=== PATIENT | male | born 1935 | race Caucasian/White ===

== ENCOUNTER 2020-01-06 14:24 | Inpatient (IN) | payer MEDICARE ==
[2020-01-06] MEDS ORDERED: ACETAMINOPHEN TAB 325 MG TAB PO STA (15:11)
[2020-01-06] MEDS ORDERED: SODIUM CHLORIDE 0.9% 1,000 ML IV STA (15:12)
[2020-01-06 15:39] LABS: Basophils % (A) 0 %; Eosinophils # (A) 0.2 k/uL (0-0.7); Eosinophils % (A) 2 %; HCT 37.9 % (39.0-53.0); HGB 12.9 gm/dL (13.0-17.5); Lymphocytes # (A) 0.3 k/uL (1.0-4.8); Lymphocytes % (A) 4 %; MCHC 34.2 g/dL (31.0-37.0); MCV 93.6 fL (80.0-100.0); Mean Platelet Volume 7.8; Monocytes # (A) 0.5 k/uL (0-1.0); Monocytes % (A) 6 %; Neutrophils # (A) 5.8 k/uL (1.3-7.7); Neutrophils % (A) 83 %; Platelet Count 102 k/uL (150-450); RBC 4.05 m/uL (4.30-5.90); RDW 14.1 % (11.5-15.5)
[2020-01-06 15:45] LABS: ALT 17 U/L (4-49); AST 25 U/L (17-59); African American GFR (CKD) >90 (>60 ml/min/1.73 sqM); Albumin 3.2 g/dL (3.5-5.0); Alkaline Phosphatase 115 U/L (38-126); Anion Gap 8 mmol/L; Appearance,Urine Turbid (Clear); Bacteria,Urine Many /hpf; Bilirubin,Urine Negative (Negative); Blood Urea Nitrogen 27 mg/dL (9-20); Blood,Urine Moderate (Negative); Calcium 9.1 mg/dL (8.4-10.2); Carbon Dioxide 23 mmol/L (22-30); Chloride 106 mmol/L (98-107); Color,Urine Yellow; Glucose 126 mg/dL (74-99); Glucose,Urine (UA) Negative (Negative); Ketones,Urine Negative (Negative); LDH 441 U/L (313-618); Leukocyte Esterase,Urine Large (Negative); Magnesium 2.1 mg/dL (1.6-2.3); Mucus,Urine Many /hpf; Nitrite,Urine Positive (Negative); Non-African American GFR(CKD) 80 (>60 ml/min/1.73 sqM); PH, Urine 5.5 (5.0-8.0); Potassium 4.3 mmol/L (3.5-5.1); Protein,Urine 1+ (Negative); RBC,Urine 146 /hpf (0-5); Sodium 137 mmol/L (137-145); Specific Gravity,Urine 1.024 (1.001-1.035); Squamous Epithelial Cell,Urine 3 /hpf (0-4); Total Bilirubin 0.8 mg/dL (0.2-1.3); Total Protein 6.4 g/dL (6.3-8.2); Urobilinogen,Urine <2.0 mg/dL (<2.0); WBC,Urine >182 /hpf (0-5)
[2020-01-06 15:51] LABS: Partial Thromboplastin Time 29.6 sec (22.0-30.0); Prothrombin Time 10.3 sec (9.0-12.0)
--- NOTE | 2020-01-06 15:57 | XR ---
EXAMINATION TYPE: XR chest 1V portable DATE OF EXAM: 01/06/2020 Comparison: None Clinical History: 85-year-old male fever and weakness, Suspected COVID-19 pneumonia Findings: Exam rotated towards the right. Heart upper limits of normal in size. Mild elongation thoracic aorta. Mild patchy interstitial density in the right lower lung. No pleural effusion. Impression: Rotated exam. Mild patchy interstitial density in the right lower lung could represent developing pne umonia. Follow-up can be performed.
--- NOTE | 2020-01-06 16:17 | ED ---
Weakness HPI - General Chief complaint: Weakness Stated complaint: Fever/weakness Time Seen by Provider: 01/06/20 14:53 Source: family Mode of arrival: wheelchair Limitations: altered mental status, physical limitation - History of Present Illness Initial comments: Patient is a 85-year-old male, with history of dementia, presenting to the emergency with complaints of weakness and a fever 3 days. Patient's son is here with him now and is also his electrical engineer mep. Son states that patient is been having low-grade fevers for the last 3 days as well as a mild cough and increase in weakness, difficulty walking on his own. They have been giving patient Tyl enol for his fever. He's been having regular bowel movements. Has not been complaining of abdominal pain or chest pain or shortness of breath. Patient has not left his house in over 6 weeks. There are no other complaints at this time. Upon arrival to the ER, patient arrived febrile to 103 10, pulse is 101, less rate 18, BP is 104/65, oxygen 95% on room air. - Related Data Allergies Allergy/AdvReac Type Severity Reaction Status Date / Time No Known Allergies Allergy Verified 01/06/20 14:35 Review of Systems ROS Statement: Those systems with pertinent positive or pertinent negative responses have been documented in the HPI. ROS Other: All systems not noted in ROS Statement are negative. Past Medical History Past Medical History: Dementia, GERD/Reflux Additional Past Medical History / Comment(s): bph, kidney stone History of Any Multi-Drug Resistant Organisms: None Reported Past Surgical History: Hernia Repair Additional Past Surgical History / Comment(s): kidney stone removal Smoking Status: Former smoker Past Alcohol Use History: None Reported Past Drug Use History: None Reported General Exam - General Exam Comments Initial Comments: GENERAL: Well-appearing, looks fatigued, in no acute distress. HEAD: Atraumatic, normocephalic. EYES: Pupils equal round and reactive to light, extraocular movements intact, sclera anicteric, conjunctiva are normal. ENT: TMs normal, nares patent, oropharynx clear without exudates. Dry mucous membranes. NECK: Normal range of motion, supple without lymphadenopathy or JVD. LUNGS: Breath sounds clear to auscultation bilaterally and equal. No wheezes rales or rhonchi. HEART: Regular rate and rhythm without murmurs, rubs or gallops. ABDOMEN: Soft, nontender, normoactive bowel sounds. No guarding, no rebound. No masses appreciated. : Deferred EXTREMITIES: Normal range of motion, no pitting or edema. No clubbing or cyanosis. NEUROLOGICAL: Cranial nerves II through XII grossly intact. PSYCH: History of dementia. SKIN: Warm, Dry, normal turgor, no rashes or lesions noted. Limitations: altered mental status, physical limitation Course Vital Signs 01/06/20 01/06/20 01/06/20 14:32 15:03 16:35 Temperature 103.0 F H 99.2 F Pulse Rate 101 H 83 Respiratory 20 18 18 Rate Blood Pressure 104/65 122/69 O2 Sat by Pulse 95 98 Oximetry EKG Findings - EKG Comments: EKG Findings:: Ventricular rate 78, DE interval 152, QTC 410. Normal sinus rhythm. Normal ECG. No signs of acute ischemia. Medical Decision Making - Medical Decision Making Patient is an 85-year-old male, history dementia, presenting with a fever, increasing weakness for 3 days. Patient's son is providing history. Patient arrived febrile 103, slightly tachycardia at 101. Exam revealed no significant abnormalities. Lab work shows normal white count, hemoglobin normal. Slight BUN elevation at 27, troponin is normal. CRP is elevated at 391. Rapid Covid is negative. UA does reveal a significant UTI, positive nitrate. Chest x-ray shows mild patchy density in the right lower lung that could really represent a developing pneumonia. Patient was given fluids, started on Rocephin and azithromycin. Patient will be admitted for continued IV antibiotics and fluids. Discussed case with Dr. Chisholm who will be accepting. Case also discussed with Dr. Butler. - Lab Data Result diagrams: 01/06/20 15:23 01/06/20 15:23 Lab Results 01/06/20 01/06/20 01/06/20 Range/Units 15:23 15:23 15:23 WBC 7.0 (3.8-10.6) k/uL RBC 4.05 L (4.30-5.90) m/uL Hgb 12.9 L (13.0-17.5) gm/dL Hct 37.9 L (39.0-53.0) % MCV 93.6 (80.0-100.0) fL MCH 32.0 (25.0-35.0) pg MCHC 34.2 (31.0-37.0) g/dL RDW 14.1 (11.5-15.5) % Plt Count 102 L (150-450) k/uL Neutrophils % 83 % Lymphocytes % 4 % Monocytes % 6 % Eosinophils % 2 % Basophils % 0 % Neutrophils # 5.8 (1.3-7.7) k/uL Lymphocytes # 0.3 L (1.0-4.8) k/uL Monocytes # 0.5 (0-1.0) k/uL Eosinophils # 0.2 (0-0.7) k/uL Basophils # 0.0 (0-0.2) k/uL PT 10.3 (9.0-12.0) sec INR 1.0 (<1.2) APTT 29.6 (22.0-30.0) sec D-Dimer 1.31 H (<0.60) mg/L FEU Sodium (137-145) mmol/L Potassium (3.5-5.1) mmol/L Chloride (98-107) mmol/L Carbon Dioxide (22-30) mmol/L Anion Gap mmol/L BUN (9-20) mg/dL Creatinine (0.66-1.25) mg/dL Est GFR (CKD-EPI)AfAm (>60 ml/min/1.73 sqM) Est GFR (CKD-EPI)NonAf (>60 ml/min/1.73 sqM) Glucose (74-99) mg/dL Plasma Lactic Acid Vu (0.7-2.0) mmol/L Calcium (8.4-10.2) mg/dL Magnesium (1.6-2.3) mg/dL Total Bilirubin (0.2-1.3) mg/dL AST (17-59) U/L ALT (4-49) U/L Alkaline Phosphatase (38-126) U/L Lactate Dehydrogenase (313-618) U/L Troponin I (0.000-0.034) ng/mL C-Reactive Protein (<10.0) mg/L NT-Pro-B Natriuret Pep pg/mL Total Protein (6.3-8.2) g/dL Albumin (3.5-5.0) g/dL Urine Color Yellow Urine Appearance Turbid (Clear) Urine pH 5.5 (5.0-8.0) Ur Specific [place] 1.024 (1.001-1.035) Urine Protein 1+ H (Negative) Urine Glucose (UA) Negative (Negative) Urine Ketones Negative (Negative) Urine Blood Moderate H (Negative) Urine Nitrite Positive (Negative) Urine Bilirubin Negative (Negative) Urine Urobilinogen <2.0 (<2.0) mg/dL Ur Leukocyte Esterase Large H (Negative) Urine RBC 146 H (0-5) /hpf Urine WBC >182 H (0-5) /hpf Urine WBC Clumps Many H (None) /hpf Ur Squamous Epith Cells 3 (0-4) /hpf Urine Bacteria Many H (None) /hpf Urine Mucus Many H (None) /hpf Coronavirus (PCR) (Not Detectd) 01/06/20 01/06/20 01/06/20 Range/Units 15:23 15:23 15:23 WBC (3.8-10.6) k/uL RBC (4.30-5.90) m/uL Hgb (13.0-17.5) gm/dL Hct (39.0-53.0) % MCV (80.0-100.0) fL MCH (25.0-35.0) pg MCHC (31.0-37.0) g/dL RDW (11.5-15.5) % Plt Count (150-450) k/uL Neutrophils % % Lymphocytes % % Monocytes % % Eosinophils % % Basophils % % Neutrophils # (1.3-7.7) k/uL Lymphocytes # (1.0-4.8) k/uL Monocytes # (0-1.0) k/uL Eosinophils # (0-0.7) k/uL Basophils # (0-0.2) k/uL PT (9.0-12.0) sec INR (<1.2) APTT (22.0-30.0) sec D-Dimer (<0.60) mg/L FEU Sodium 137 (137-145) mmol/L Potassium 4.3 (3.5-5.1) mmol/L Chloride 106 (98-107) mmol/L Carbon Dioxide 23 (22-30) mmol/L Anion Gap 8 mmol/L BUN 27 H (9-20) mg/dL Creatinine 0.83 (0.66-1.25) mg/dL Est GFR (CKD-EPI)AfAm >90 (>60 ml/min/1.73 sqM) Est GFR (CKD-EPI)NonAf 80 (>60 ml/min/1.73 sqM) Glucose 126 H (74-99) mg/dL Plasma Lactic Acid Vu 1.6 (0.7-2.0) mmol/L Calcium 9.1 (8.4-10.2) mg/dL Magnesium 2.1 (1.6-2.3) mg/dL Total Bilirubin 0.8 (0.2-1.3) mg/dL AST 25 (17-59) U/L ALT 17 (4-49) U/L Alkaline Phosphatase 115 (38-126) U/L Lactate Dehydrogenase 441 (313-618) U/L Troponin I <0.012 (0.000-0.034) ng/mL C-Reactive Protein 391.5 H (<10.0) mg/L NT-Pro-B Natriuret Pep pg/mL Total Protein 6.4 (6.3-8.2) g/dL Albumin 3.2 L (3.5-5.0) g/dL Urine Color Urine Appearance (Clear) Urine pH (5.0-8.0) Ur Specific [place] (1.001-1.035) Urine Protein (Negative) Urine Glucose (UA) (Negative) Urine Ketones (Negative) Urine Blood (Negative) Urine Nitrite (Negative) Urine Bilirubin (Negative) Urine Urobilinogen (<2.0) mg/dL Ur Leukocyte Esterase (Negative) Urine RBC (0-5) /hpf Urine WBC (0-5) /hpf Urine WBC Clumps (None) /hpf Ur Squamous Epith Cells (0-4) /hpf Urine Bacteria (None) /hpf Urine Mucus (None) /hpf Coronavirus (PCR) (Not Detectd) 01/06/20 01/06/20 Range/Units 15:23 15:23 WBC (3.8-10.6) k/uL RBC (4.30-5.90) m/uL Hgb (13.0-17.5) gm/dL Hct (39.0-53.0) % MCV (80.0-100.0) fL MCH (25.0-35.0) pg MCHC (31.0-37.0) g/dL RDW (11.5-15.5) % Plt Count (150-450) k/uL Neutrophils % % Lymphocytes % % Monocytes % % Eosinophils % % Basophils % % Neutrophils # (1.3-7.7) k/uL Lymphocytes # (1.0-4.8) k/uL Monocytes # (0-1.0) k/uL Eosinophils # (0-0.7) k/uL Basophils # (0-0.2) k/uL PT (9.0-12.0) sec INR (<1.2) APTT (22.0-30.0) sec D-Dimer (<0.60) mg/L FEU Sodium (137-145) mmol/L Potassium (3.5-5.1) mmol/L Chloride (98-107) mmol/L Carbon Dioxide (22-30) mmol/L Anion Gap mmol/L BUN (9-20) mg/dL Creatinine (0.66-1.25) mg/dL Est GFR (CKD-EPI)AfAm (>60 ml/min/1.73 sqM) Est GFR (CKD-EPI)NonAf (>60 ml/min/1.73 sqM) Glucose (74-99) mg/dL Plasma Lactic Acid Vu (0.7-2.0) mmol/L Calcium (8.4-10.2) mg/dL Magnesium (1.6-2.3) mg/dL Total Bilirubin (0.2-1.3) mg/dL AST (17-59) U/L ALT (4-49) U/L Alkaline Phosphatase (38-126) U/L Lactate Dehydrogenase (313-618) U/L Troponin I (0.000-0.034) ng/mL C-Reactive Protein (<10.0) mg/L NT-Pro-B Natriuret Pep 1060 pg/mL Total Protein (6.3-8.2) g/dL Albumin (3.5-5.0) g/dL Urine Color Urine Appearance (Clear) Urine pH (5.0-8.0) Ur Specific [place] (1.001-1.035) Urine Protein (Negative) Urine Glucose (UA) (Negative) Urine Ketones (Negative) Urine Blood (Negative) Urine Nitrite (Negative) Urine Bilirubin (Negative) Urine Urobilinogen (<2.0) mg/dL Ur Leukocyte Esterase (Negative) Urine RBC (0-5) /hpf Urine WBC (0-5) /hpf Urine WBC Clumps (None) /hpf Ur Squamous Epith Cells (0-4) /hpf Urine Bacteria (None) /hpf Urine Mucus (None) /hpf Coronavirus (PCR) Not Detected (Not Detectd) Disposition Clinical Impression: Sepsis, UTI (urinary tract infection), Pneumonia Disposition: ADMITTED IP TO THIS HOSP Condition: Good Is patient prescribed a controlled substance at d/c from ED?: No Decision Date: 01/06/20 Decision Time: 16:40
[2020-01-06 16:18] LABS: D-Dimer 1.31 mg/L FEU (<0.60)
[2020-01-06] MEDS ORDERED: AZITHROMYCIN 500 MG in SODIUM CHLORIDE 0.9% 250 ML IVPB STA (16:34)
[2020-01-06] MEDS ORDERED: NALOXONE 0.4 MG/ML 1 ML VIAL IV PRN (16:37)
[2020-01-06 16:43] LABS: C Reactive Protein 391.5 mg/L (<10.0)
[2020-01-06] MEDS ORDERED: HYDROcodone/APAP 5-325MG 1 EACH TAB PO PRN (17:22)
[2020-01-06] MEDS ORDERED: ALPRAZolam 0.25 MG TAB PO PRN (17:22)
[2020-01-06] MEDS ORDERED: LORazepam 2 MG/ML INJ IV PRN (17:24)
--- NOTE | 2020-01-06 19:04 | HP ---
HISTORY AND PHYSICAL DATE OF SERVICE: 01/06/2020 CHIEF COMPLAINT: Weakness as well as fever. HISTORY OF PRESENT ILLNESS: This 85-year-old gentleman with a past medical history of significant dementia, history of GERD, history of BPH, nephrolithiasis, not being followed by a primary physician in the outpatient setting, was living elsewhere until recently with his . Because of difficulties and weakness, the patient's son got both of them for the last few months, but the son noted that the patient was getting progressively weak and confused and also was having low-grade fever. The patient was taken to [facility] and was admitted for further evaluation and treatment. The patient has evidence of UTI. The patient is unable to give a coherent history. Patient is oriented x1 only at times. Most of the history taken from my discussion with staff and discussion with the ER physician and discussion with the patient's son at the bedside at this time. The son also indicated some difficulties with maintaining activities of daily living. A social work/case management consult was also requested. There is no history of trauma. PAST MEDICAL HISTORY: History of GERD, dementia, history of BPH, kidney stones, history of hernia repair, kidney stone removal. HOME MEDICATIONS: The list is not available. ALLERGIES: NONE. FAMILY HISTORY: No history of heart disease or strokes in the family. SOCIAL HISTORY: Remote history of smoking. No current smoking or alcohol intake. REVIEW OF SYSTEMS: Could not be taken because of the patient's change in mental status and advanced dementia. PHYSICAL EXAMINATION: The patient is oriented x1 at times. Pulse is 101, blood pressure 104/64, respiration 20, temperature 103, pulse ox 94% on room air. HEENT: Conjunctivae normal. Oral mucosa moist. NECK: No jugular venous distention. No carotid bruit. No lymph node enlargement. CARDIOVASCULAR SYSTEM: S1, S2 muffled. No S3. No S4. RESPIRATORY SYSTEM: Breath sounds diminished at the bases. A few scattered rhonchi. No crackles. ABDOMEN: Soft, non-tender. No mass palpable. LEGS: No edema. No swelling. NERVOUS SYSTEM: Diffusely weak. LAB: Lab investigations at this time show WBC 7, hemoglobin 12.9. D-dimer is 1.31. Lactic acid 1.6. C-reactive protein 391.5. UA noted. UA with WBC clumps grown; otherwise negative. ASSESSMENT: 1. Possible urinary tract infection with sepsis. 2. Change in mental status, acute on chronic metabolic encephalopathy, possibly secondary to sepsis. 3. Severe dementia. 4. Anemia. 5. Macrocytosis, possibly nutritional anemia. 6. Elevated D-dimer. 7. Rule out right lower lobe pneumonia. 8. History of gastroesophageal reflux disease. 9. History of benign prostatic hypertrophy. 10.History of kidney stones. 11.History of hernia repair. 12.Remote history of nicotine dependence. 13.FULL CODE. 14.Gait dysfunction. RECOMMENDATIONS AND DISCUSSION: In this 85-year-old gentleman who presented with multiple complex medical issues, we will monitor the patient closely, continue the current medications, continue symptomatic treatment. I recommend broad-spectrum IV antibiotics, PT/OT evaluation. DVT prophylaxis. Continue the rest of medication. Obtain cultures. We will follow the patient closely. I would also recommend that casework manager/social media intern evaluate the home situation as well. The overall prognosis is guarded because of multiple complex medical issues. Patient also had features of dementia and possibly some night terror episodes, per his son. Will provide symptomatic treatment. The prognosis is extremely guarded, which I discussed at length with the son, who understands and agrees. Further recommendations to follow. MMODL / IJN: [id number] / MTDWinnie
[2020-01-06] MEDS: SODIUM CHLORIDE 0.9% 1,000 ML IV SCH (21:08)
[2020-01-06] MEDS: HEPARIN SODIUM,PORCINE 5,000 UNIT/ML 1 ML VIAL SQ SCH ×2 (21:56→22:01)
[2020-01-06] MEDS: PANTOPRAZOLE 40 MG TABLET PO SCH (21:56)
[2020-01-06] MEDS: risperiDONE 0.25 MG TAB PO SCH (21:56)
[2020-01-07] MEDS: ACETAMINOPHEN TAB 325 MG TAB PO PRN ×2 (00:36→14:52)
[2020-01-07 02:01] LABS: Ferritin 270.7 ng/mL (22.0-322.0)
[2020-01-07] MEDS ORDERED: IBUPROFEN 400 MG TAB PO STA (02:01)
[2020-01-07] MEDS: HEPARIN SODIUM,PORCINE 5,000 UNIT/ML 1 ML VIAL SQ SCH (06:58)
[2020-01-07 07:18] LABS: HCT 32.4 % (39.0-53.0); MCH 32.2 pg (25.0-35.0); MCV 94.6 fL (80.0-100.0); Mean Platelet Volume 7.9; RBC 3.42 m/uL (4.30-5.90); WBC 5.5 k/uL (3.8-10.6)
[2020-01-07 07:39] LABS: African American GFR (CKD) >90 (>60 ml/min/1.73 sqM); Anion Gap 4 mmol/L; Blood Urea Nitrogen 23 mg/dL (9-20); Carbon Dioxide 26 mmol/L (22-30); Chloride 109 mmol/L (98-107); Glucose 94 mg/dL (74-99); Non-African American GFR(CKD) 79 (>60 ml/min/1.73 sqM); Potassium 3.8 mmol/L (3.5-5.1); Sodium 139 mmol/L (137-145)
[2020-01-07] MEDS: SODIUM CHLORIDE 0.9% 1,000 ML IV SCH ×2 (08:59→21:40)
[2020-01-07] MEDS: PANTOPRAZOLE 40 MG TABLET PO SCH (08:59)
[2020-01-07 09:07] LABS: Band Neutrophils % 1 %; Eosinophils # (M) 0.22 k/uL (0-0.7); Lymphocytes # (M) 0.61 k/uL (1.0-4.8); Monocytes # (M) 0.94 k/uL (0-1.0); Neutrophils % (M) 67 %; Nucleated Red Blood Cells 0 /100 WBC (0-0); Total Cells Counted 100
[2020-01-07 09:08] LABS: Platelet Count 93 k/uL (150-450)
[2020-01-07] MEDS: FOLIC ACID 1 MG TAB PO SCH (12:41)
[2020-01-07] MEDS: MULTIVITAMINS, THERA 1 EACH TAB PO SCH (12:41)
[2020-01-07] MEDS: THIAMINE 100 MG TAB PO SCH (12:41)
--- NOTE | 2020-01-07 14:42 | XR ---
EXAMINATION TYPE: XR chest 1V portable DATE OF EXAM: 01/07/2020 COMPARISON: 01/06/2020 INDICATION: Right-sided pneumonia, cough TECHNIQUE: Single frontal view of the chest is obtained. FINDINGS: The heart size is normal. The pulmonary vasculature is normal. Very subtle mild increased lung markings are on the right compared to the left. This may have slight improvement over the interval. IMPRESSION: 1. Improving minimal right lower lobe nonspecific infiltrate.
--- NOTE | 2020-01-07 15:01 | PN ---
PROGRESS NOTE DATE OF SERVICE: 01/07/2020 This is an 85-year-old gentleman admitted with possible UTI with sepsis also confused. The patient is on IV antibiotics. Patient also being hydrated at this time. Patient also has some weakness as well. Patient also has severe dementia. The final cultures are pending at this time. Hemoglobin is 11, platelets are 93. C-reactive protein is 391.5. The COVID is negative. PAST MEDICAL HISTORY: Reviewed. REVIEW OF SYSTEMS: Could not be taken. The patient is confused and disoriented. CURRENT MEDICATIONS: Reviewed and include: 1. Tylenol p.r.n. 2. [place] 5 mg q.6 p.r.n. 3. Xanax 0.5 t.i.d. 4. Rocephin 1 g daily. 5. Folic acid 1 mg p.o. daily. 6. Heparin subcu b.i.d. 7. Ativan 0.5 mg p.r.n. 8. Multivitamins 1 p.o. daily. 9. Narcan. 10.Protonix 40 mg. 11.Risperdal 0.125 mg q.h.s. 12.Vitamin B1 one hundred mg p.o. daily. PHYSICAL EXAM: Patient is alert and oriented x3, pulse 67, blood pressure 129/78, respiration 18, temp 97.8, pulse ox 97% on room air. HEENT: Normal. NECK: Normal. CARDIOVASCULAR: S1, S2, muffled. RESPIRATORY: Breath sounds diminished a the bases, a few scattered rhonchi, no crackles. ABDOMEN: Soft, nontender. LEGS: No edema. NERVOUS SYSTEM: Diffusely weak. LABS: WBC is 5, hemoglobin is 11, platelets are 93. Sodium 139, potassium 3.8. ASSESSMENT: 1. Acute urinary tract infection with sepsis present on admission, not related to Boland catheter. 2. Change in mental status, acute on chronic metabolic encephalopathy, possibly secondary to sepsis. 3. Severe dementia. 4. Severe gait dysfunction. 5. Anemia. 6. Macrocytosis, possibly nutritional anemia. 7. Elevated D-dimer. 8. Rule out right lower pneumonia. 9. History of gastroesophageal reflux disease. 10.History of BPH. 11.History of kidney stones. 12.History of hernia repair. 13.Remote history of nicotine dependence. 14.FULL CODE. RECOMMENDATION: Recommend to continue current management and symptomatic treatment. Will continue with IV antibiotics and I would also recommend a chest x-ray to evaluate for possible pneumonia. Otherwise repeat labs. PT, OT evaluation, possible ECF rehab. I had a detailed discussion with the son at the bedside yesterday. We will update staff regarding that and guarded prognosis. Further recommendations to follow. MACL / TOIN: [id number] /
[2020-01-07] MEDS ORDERED: IBUPROFEN 600 MG TAB PO STA (16:33)
[2020-01-07] MEDS: AZITHROMYCIN 500 MG TAB PO SCH (16:57)
[2020-01-07] MEDS: risperiDONE 0.25 MG TAB PO SCH (21:40)
[2020-01-08] MEDS: ALBUTEROL NEBULIZED 2.5 MG/3 ML INHALATION PRN ×2 (07:38→11:01)
[2020-01-08] MEDS: ACETAMINOPHEN TAB 325 MG TAB PO PRN (08:03)
[2020-01-08] MEDS: PANTOPRAZOLE 40 MG TABLET PO SCH (08:03)
[2020-01-08] MEDS: SODIUM CHLORIDE 0.9% 1,000 ML IV SCH (08:15)
[2020-01-08] MEDS: MULTIVITAMINS, THERA 1 EACH TAB PO SCH (13:13)
[2020-01-08] MEDS: FOLIC ACID 1 MG TAB PO SCH (13:13)
[2020-01-08] MEDS: THIAMINE 100 MG TAB PO SCH (13:14)
--- NOTE | 2020-01-08 14:09 | XR ---
EXAMINATION TYPE: XR chest 1V portable DATE OF EXAM: 01/08/2020 Comparison: 01/07/2020 Clinical History: 85 year old male wheezing, cough Findings: Heart upper limits of normal in size. Aorta and pulmonary vasculature within normal limits. Mild inte rstitial prominence slightly increased. No residual consolidation or pleural effusion. Impression: Mild interstitial prominence could reflect bronchitis or asthma. No residual infiltrate seen.
[2020-01-08] MEDS ORDERED: IOPAMIDOL CONTRAST (ORAL USE) VIAL PO PRN (15:51)
[2020-01-08] MEDS: AZITHROMYCIN 500 MG TAB PO SCH (17:25)
[2020-01-08] MEDS: ENOXAPARIN 40 MG/0.4 ML SYRINGE SQ SCH (17:25)
--- NOTE | 2020-01-08 17:33 | PN ---
PROGRESS NOTE DATE OF SERVICE: 12/19/2019 This 85-year-old gentleman was admitted with significant fever, thought to have UTI, initially, but the patient running significant fever. The cultures are showing only gram-negative bacilli. The patient is being closely monitored. Dr. Haynes has been consulted and considering the possibility of COVID-19 infection even though the patient was tested for daigle virus was negative by habit testing in the emergency room. The patient will be closely monitored. Patient continues to be confused and basically not very communicative at this time. PAST MEDICAL HISTORY: Could not be taken. CURRENT MEDICATIONS: Reviews and include: 1. Tylenol p.r.n. 2. [place] 5 mg q.6 p.r.n. 3. Xanax 0.5 t.i.d. 4. Zithromax 500 mg daily. 5. Rocephin 1 g daily. 6. Folic acid 1 mg daily. 7. Ativan 0.5 mg. 8. Multivitamins. 9. Narcan. 10.Protonix. 11.Risperdal. 12.Vitamin B1. 13.Doses reviewed. PHYSICAL EXAM: Patient is alert, oriented x3. Pulse is 78, blood pressure 117/60, respiration 18, temperature 97.9, pulse ox 96% on 2 L. HEENT: Conjunctivae normal. NECK: No jugular venous distension. CARDIOVASCULAR SYSTEM: S1, S2, muffled. RESPIRATION: Breath sounds diminished at the bases, scattered rhonchi, no crackles. ABDOMEN: Soft, nontender. LEGS: No edema, no swelling. NERVOUS SYSTEM: Diffusely weak. LABS: At this time shows WBC 5.8, hemoglobin 7. Other labs are noted. ASSESSMENT: 1. Acute urinary tract infection with sepsis present on admission, not related to Boland catheter. 2. Continued fever, rule out COVID-19. 3. Change in mental status, metabolic encephalopathy, acute on chronic. 4. Severe dementia. 5. Severe gait dysfunction. 6. Anemia. 7. Macrocytosis, possibly nutritional anemia. 8. Elevated D-dimer. 9. Rule out right lower lobe pneumonia. 10.History of gastroesophageal reflux disease. 11.History of BPH. 12.History of kidney stones. 13.History of hernia repair. 14.Remote history of nicotine dependence. 15.FULL CODE. RECOMMENDATION: Recommend to continue current medications, continue with the management and symptomatic treatment. Otherwise, a chest x-ray was done today which showed mild interstitial prominence. No evidence of obvious pneumonia. Further recommendations to follow. See orders for details. MMODL / IJN: [id number] /
--- NOTE | 2020-01-08 19:35 | CT ---
EXAMINATION TYPE: CT ChestAbdPelvis wo con DATE OF EXAM: 01/08/2020 COMPARISON: Chest x-ray of 01/08/2020 HISTORY: Fever of unknown origin CT DLP: 611.7 mGycm. Automated Exposure Control for Dose Reduction was Utilized. TECHNIQUE: CT scan of the thorax, abdomen and pelvis is performed without IV contrast. Oral contrast was utilize d per department protocol. FINDINGS: Motion artifact limits the examination. Plaque of intravenous contrast also in its evaluati on of the solid viscera. LUNGS: Mild emphysematous changes of the lung apices are paraseptal. Motion artifact limits evaluatio n for pulmonary nodule. Trace bilateral pleural effusions are seen with minimal bibasilar subsegmenta l atelectasis. The lungs are grossly clear, there is no concerning parenchymal mass or nodule identif ied. No pneumothorax seen. The tracheobronchial tree is patent. MEDIASTINUM: There are no greater than 1 cm hilar or mediastinal lymph nodes. No cardiomegaly. Moder ate coronary artery atherosclerosis. Trace pericardial effusion. OTHER: Small to moderate hiatal hernia. Oral contrast in the distal esophagus and hernia could be on the basis of gastroesophageal reflux or delayed transit. LIVER/GB: Benign parenchymal calcified granuloma. Otherwise, unenhanced morphology is unremarkable. N o radiopaque stones in the gallbladder however 2 punctate calcifications may be in the dependent aspe ct of the common bile duct on coronal image 60 however this is difficult to accurately assess given p atient motion. Alternatively these could relate to hepatic artery atherosclerosis. Ultrasound is benigno mmended. PANCREAS: No main pancreatic ductal dilatation. SPLEEN: No significant abnormality is seen. ADRENALS: No significant abnormality is seen. KIDNEYS: Fluid attenuated left renal lesion has ill-defined borders given patient motion measuring ap proximately 2.3 cm, likely a cyst. BOWEL: There is multifocal thickening of the sigmoid colon in its mid and distal portions. More geri ntric annular appearance of the distal sigmoid on image 99 concerning for underlying neoplasm. Innume rable sigmoid diverticula are present without significant pericolonic fat stranding. No dilated bowel to suggest obstruction. Contrast extends to the distal sigmoid colon just prior to the noted area of possible mass.. LYMPH NODES: No greater than 1cm abdominal or pelvic lymph nodes are appreciated. OSSEOUS STRUCTURES: Levoscoliosis of the lumbar spine is mild. Severe degenerative change of the spin e is seen with multilevel malalignment (retrolisthesis of L1-L4) that is likely on a degenerative bas is. Bridging anterior osteophytes of the thoracic spine. Moderate degenerative change of the hips.. OTHER: Numerous diverticula are seen of the urinary bladder with diffuse urinary bladder wall thicken ing, possibly related to incomplete distention. Diverticula may be on the basis of chronic urinary bl adder outlet obstruction as the prostate gland is enlarged measuring 6.4 cm in transverse dimension. Patulous inguinal canals are noted. Extensive atherosclerosis of the abdominal aorta and its branches . IMPRESSION: Exam is limited by patient motion. 1. Masslike annular narrowing of the distal sigmoid colon concerning for sigmoid neoplasm. Colonoscop y is recommended. Multifocal thickening of the sigmoid colon is seen with other areas possibly relate d to chronic diverticulitis. No current inflammatory fat stranding. No dilation of the proximal small bowel to suggest obstruction. Contrast does not extend past the area of annular narrowing at this ti me. 2. Possible punctate calculi in the common bile duct. Ultrasound is recommended for further evaluatio n. 3. Ultrasound can also confirm the cystic nature of a left renal lesion, also limited by patient portia on. 4. Findings likely on the basis of chronic urinary bladder outlet obstruction due to an enlarged pros murphy gland. 5. Moderate hiatal hernia with contrast seen in the distal esophagus and hernia that may be related t o gastroesophageal reflux or decreased avulsion.
[2020-01-08] MEDS: risperiDONE 0.25 MG TAB PO SCH (21:15)
[2020-01-08] MEDS: PIPERACILLIN-TAZOBACTAM 3.375 GM in SODIUM CHLORIDE 0.9% 100 ML IVPB SCH (23:19)
--- NOTE | 2020-01-09 02:51 | CONS ---
CONSULTATION DATE OF SERVICE: 01/08/2020. REASON FOR CONSULTATION: Fever. HISTORY OF PRESENT ILLNESS: The patient is an 85-year-old man presented to the hospital on January 06, 2020 for evaluation of fever and weakness. His symptoms were going on for about 3 days before he presented to hospital. According to the son who provided most of the history to the ER physician mentioning the patient was having low-grade fever for 3 days. Also did have mild cough and increasing weakness and difficulty in walking on his own. The patient apparently has been having regular bowel movement. There is no history of any abdominal pain, chest pain, shortness of breath or cough. The patient has not been out of the house in 6 weeks. On arrival to the ER, the patient was noticed to be febrile with temperature 103 Fahrenheit. The patient spiking a fever of 102-103 on a daily basis. The last temperature this morning of 103.1 at 7 in the morning. The patient did have a normal white count with mild leukopenia. However, his LDH was normal. Liver enzymes are normal. Procalcin and CRP both are elevated. The patient did have a positive UA. Terrell PCR was negative. The patient's blood culture has been negative. Urine showing gram-negative. Patient treated with Rocephin. However, in view of the persistent fever, Infectious Disease was consulted for further recommendations. The patient, at time of my evaluation, has been complaining of feeling weak and tired, although he denies any headache. No chest pain. No shortness of breath or cough. No abdominal pain. No vomiting or any diarrhea. Overall no JVD. Good historian. The patient also have a CT of the chest, abdomen and pelvis done. CT chest did not show any pulmonary infiltrate. However, CT abdomen and pelvis shows a mass like annular narrowing of the distal sigmoid colon concerning for sigmoid neoplasm and findings were suspicious for cystitis or bladder outlet obstruction. REVIEW OF SYSTEMS: Positive points have been mentioned in HPI. Rest of systems negative. PAST MEDICAL HISTORY: Dementia, gastroesophageal reflux disease, benign prostatic hypertrophy, kidney stone. PAST SURGICAL HISTORY: Past surgical history of kidney stone removed and hernia repair. SOCIAL HISTORY: No history of smoking, drinking or drug use. FAMILY HISTORY: No pertinent findings noticed. ALLERGIES: No known drug allergies. MEDICATIONS: Patient is currently on Rocephin 1 g daily, he is on Tylenol, [place], Ventolin, Xanax, Zithromax, Lovenox, Ativan, Narcan, Protonix and Risperdal. PHYSICAL EXAMINATION: Blood pressure is 162/80 with a pulse of 90, temperature 98.1. He is 98% on room air. General description: The patient is an elderly male up in the chair in no distress. No tachypnea or accessory muscles of respiration use. HEENT: Examination shows slight pallor. No scleral icterus. Oral mucosa membrane is dry. NECK: Trachea central. No thyromegaly. LUNGS: Unlabored breathing. Decreased breath sounds at bases. No wheeze or crackles. Heart S1, S2. Regular rate and rhythm. ABDOMEN: Soft, no tenderness. No guarding. No rigidity. EXTREMITIES: No edema of the feet. SKIN examination: No rash or mass palpable. NEUROLOGIC: The patient is awake, alert, oriented times three. Mood and affect normal. LABS: Hemoglobin is 11, white count 5.5. BUN of 23, creatinine 0.87. Urine was positive. Procalcin and CRP elevated. Terrell was negative. Urine showing gram-negative. Blood culture so far negative. DIAGNOSTIC IMPRESSION AND PLAN: Patient with fever in this patient who presented to hospital with generalized weakness. The patient does have evidence of bladder outlet obstruction from benign prostatic hypertrophy with some abnormality of the sigmoid colon with the source of his fever possibly resistant gram-negative urinary tract infection versus sigmoid diverticulitis. PLAN: 1. Discontinue the Rocephin. 2. Start the patient on Zosyn 3.375 g q.8 hours. 3. Check influenza swab. 4. We will follow on his clinical condition and culture to further adjust medication if needed. Thank you for this consultation. We will follow this patient along with you. MMODL / IJN: [id number] / MTDWinnie
[2020-01-09] MEDS: SODIUM CHLORIDE 0.9% 1,000 ML IV SCH (07:02)
[2020-01-09] MEDS: PIPERACILLIN-TAZOBACTAM 3.375 GM in SODIUM CHLORIDE 0.9% 100 ML IVPB SCH ×3 (07:53→23:21)
[2020-01-09] MEDS: MULTIVITAMINS, THERA 1 EACH TAB PO SCH (07:54)
[2020-01-09] MEDS: FOLIC ACID 1 MG TAB PO SCH (07:54)
[2020-01-09] MEDS: THIAMINE 100 MG TAB PO SCH (07:54)
[2020-01-09] MEDS: PANTOPRAZOLE 40 MG TABLET PO SCH (07:54)
[2020-01-09 08:28] LABS: ALT 25 U/L (4-49); AST 59 U/L (17-59); African American GFR (CKD) >90 (>60 ml/min/1.73 sqM); Albumin 2.7 g/dL (3.5-5.0); Alkaline Phosphatase 118 U/L (38-126); Anion Gap 6 mmol/L; Blood Urea Nitrogen 20 mg/dL (9-20); Carbon Dioxide 24 mmol/L (22-30); Chloride 111 mmol/L (98-107); Glucose 89 mg/dL (74-99); LDH 496 U/L (313-618); Non-African American GFR(CKD) 84 (>60 ml/min/1.73 sqM); Potassium 3.5 mmol/L (3.5-5.1); Sodium 141 mmol/L (137-145); Total Bilirubin 0.7 mg/dL (0.2-1.3); Total Protein 5.6 g/dL (6.3-8.2)
[2020-01-09 08:34] LABS: HCT 33.6 % (39.0-53.0); HGB 11.2 gm/dL (13.0-17.5); MCH 31.8 pg (25.0-35.0); MCHC 33.3 g/dL (31.0-37.0); MCV 95.3 fL (80.0-100.0); Mean Platelet Volume 7.5; RBC 3.52 m/uL (4.30-5.90); RDW 14.1 % (11.5-15.5); WBC 6.3 k/uL (3.8-10.6)
[2020-01-09 08:36] LABS: Platelet Count 143 k/uL (150-450)
[2020-01-09 08:49] LABS: Eosinophils # (M) 0.25 k/uL (0-0.7); Monocytes # (M) 0.63 k/uL (0-1.0); Neutrophils # (M) 4.91 k/uL (1.3-7.7); Neutrophils % (M) 78 %; Nucleated Red Blood Cells 0 /100 WBC (0-0); Total Cells Counted 100
[2020-01-09 10:27] LABS: C Reactive Protein 254.7 mg/L (<10.0)
[2020-01-09] MEDS ORDERED: PEG 3350-NA SULF,BICARB,CL/KCL 4,000 ML BOTTLE PO ONE (12:16)
--- NOTE | 2020-01-09 14:49 | P.GSCN ---
History of Present Illness Consult date: 01/09/20 Reason for Consult: Abnormal CT Requesting physician: Susan Chisholm History of present illness: CHIEF COMPLAINT: Abnormal CT HISTORY OF PRESENT ILLNESS: 85-year-old male originally came into the emergency room with generalized weakness and fever. Patient underwent computed tomography scan of abdomen and pelvis yesterday revealing masslike narrowing of distal sigmoid colon. Hence general surgery was consulted for further evaluation. Patient examined at the bedside by Dr. Tellez. Patient denies abdominal pain. Patient unable to recall the date of his last colonoscopy. PAST MEDICAL HISTORY: See list. PAST SURGICAL HISTORY: See list. SOCIAL HISTORY: No illicit drug use. REVIEW OF SYSTEMS: CONSTITUTIONAL: Positive for fever and generalized weakness prior to hospitalization HEENT: Denies blurred vision, vision changes, or eye pain. Denies hemoptysis CARDIOVASCULAR: Denies chest pain or pressure. RESPIRATORY: No shortness of breath. GASTROINTESTINAL: Denies abdominal pain. Denies nausea or vomiting HEMATOLOGIC: Denies bleeding disorders. GENITOURINARY: Denies any blood in urine. SKIN: Denies pruitis. Denies rash. PHYSICAL EXAM: VITAL SIGNS: Reviewed. GENERAL: Well-developed in no acute distress. HEENT: No sclera icterus. Extraocular movements grossly intact. Moist buccal mucosa. Head is atraumatic, normocephalic. ABDOMEN: Soft. Nondistended. Nontender. NEUROLOGIC: Awake. Appears confused. LABORATORY DATA: WBC 6.3. Hemoglobin 11.2. Platelet count 143. IMAGING: CT abdomen and pelvis: Masslike annular narrowing of the distal sigmoid colon ASSESSMENT: 1. Colon mass PLAN: Clear liquid diet. [facility] at [facility] Patient to undergo sigmoid colectomy, low anterior resection, and possible colostomy tomorrow with Dr. Tellez Nurse practitioner note has been reviewed by physician. Signing provider agrees with the documented findings, assessment, and plan of care. Past Medical History Past Medical History: Dementia, GERD/Reflux Additional Past Medical History / Comment(s): bph, kidney stone History of Any Multi-Drug Resistant Organisms: None Reported Past Surgical History: Hernia Repair Additional Past Surgical History / Comment(s): kidney stone removal Past Anesthesia/Blood Transfusion Reactions: No Reported Reaction Smoking Status: Former smoker Past Alcohol Use History: None Reported Past Drug Use History: None Reported Medications and Allergies Home Medications Medication Instructions Recorded Confirmed Type Acetaminophen [Tylenol] 500 mg PO Q6H PRN 01/06/20 01/06/20 History Donepezil [Aricept] 10 mg PO HS 01/06/20 01/06/20 History Loratadine [Claritin] 10 mg PO DAILY 01/06/20 01/06/20 History Omeprazole [PriLOSEC] 40 mg PO DAILY 01/06/20 01/06/20 History Tamsulosin HCl [Flomax] 0.4 mg PO DAILY 01/06/20 01/06/20 History Allergies Allergy/AdvReac Type Severity Reaction Status Date / Time No Known Allergies Allergy Verified 01/06/20 19:17 Surgical - Exam Vital Signs Temp Pulse Resp BP Pulse Ox 103.0 F H 101 H 20 104/65 95 01/06/20 14:32 01/06/20 14:32 01/06/20 14:32 01/06/20 14:32 01/06/20 14:32 Results - Labs 01/09/20 07:35 01/09/20 07:35 Abnormal Lab Results - Last 24 Hours (Table) 01/09/20 01/09/20 01/09/20 Range/Units 07:35 07:35 07:35 RBC 3.52 L (4.30-5.90) m/uL Hgb 11.2 L (13.0-17.5) gm/dL Hct 33.6 L (39.0-53.0) % Plt Count 143 L D (150-450) k/uL Lymphocytes # (Manual) 0.50 L (1.0-4.8) k/uL D-Dimer 2.65 H (<0.60) mg/L FEU Chloride 111 H (98-107) mmol/L Calcium 8.0 L (8.4-10.2) mg/dL C-Reactive Protein 254.7 H (<10.0) mg/L Total Protein 5.6 L (6.3-8.2) g/dL Albumin 2.7 L (3.5-5.0) g/dL Microbiology - Last 24 Hours (Table) 01/06/20 15:23 Urine Culture - Final Urine,Voided Klebsiella pneumoniae 01/06/20 15:23 Blood Culture - Preliminary Blood No Growth after 48 hours Diabetes panel 01/09/20 Range/Units 07:35 Sodium 141 (137-145) mmol/L Potassium 3.5 (3.5-5.1) mmol/L Chloride 111 H (98-107) mmol/L Carbon Dioxide 24 (22-30) mmol/L BUN 20 (9-20) mg/dL Creatinine 0.75 (0.66-1.25) mg/dL Glucose 89 (74-99) mg/dL Calcium 8.0 L (8.4-10.2) mg/dL AST 59 (17-59) U/L ALT 25 (4-49) U/L Alkaline Phosphatase 118 (38-126) U/L Total Protein 5.6 L (6.3-8.2) g/dL Albumin 2.7 L (3.5-5.0) g/dL Calcium panel 01/09/20 Range/Units 07:35 Calcium 8.0 L (8.4-10.2) mg/dL Albumin 2.7 L (3.5-5.0) g/dL Pituitary panel 01/09/20 Range/Units 07:35 Sodium 141 (137-145) mmol/L Potassium 3.5 (3.5-5.1) mmol/L Chloride 111 H (98-107) mmol/L Carbon Dioxide 24 (22-30) mmol/L BUN 20 (9-20) mg/dL Creatinine 0.75 (0.66-1.25) mg/dL Glucose 89 (74-99) mg/dL Calcium 8.0 L (8.4-10.2) mg/dL Adrenal panel 01/09/20 Range/Units 07:35 Sodium 141 (137-145) mmol/L Potassium 3.5 (3.5-5.1) mmol/L Chloride 111 H (98-107) mmol/L Carbon Dioxide 24 (22-30) mmol/L BUN 20 (9-20) mg/dL Creatinine 0.75 (0.66-1.25) mg/dL Glucose 89 (74-99) mg/dL Calcium 8.0 L (8.4-10.2) mg/dL Total Bilirubin 0.7 (0.2-1.3) mg/dL AST 59 (17-59) U/L ALT 25 (4-49) U/L Alkaline Phosphatase 118 (38-126) U/L Total Protein 5.6 L (6.3-8.2) g/dL Albumin 2.7 L (3.5-5.0) g/dL
[2020-01-09] MEDS: ENOXAPARIN 40 MG/0.4 ML SYRINGE SQ SCH (16:01)
[2020-01-09] MEDS: AZITHROMYCIN 500 MG TAB PO SCH (16:20)
--- NOTE | 2020-01-09 16:33 | PN ---
PROGRESS NOTE DATE OF SERVICE: 01/09/2020 This is an 85-year-old gentleman who was admitted with significant UTI and possible sepsis, also had abnormal CAT scan. The CAT scan of the abdomen showed masslike annular narrowing over the distal sigmoid colon, possibly indicating sigmoid neoplasm. Colonoscopy was recommended and we will consult Dr. Tellez, who evaluated the patient and recommended possible surgery. The patient also recommended chronic urinary bladder outlet obstruction with enlarged prostate gland also. A moderate hiatal hernia was also suspected. Patient is being closely monitored. The patient continues to be confused. PAST MEDICAL HISTORY: Reviewed. REVIEW OF SYSTEMS: Could not be taken. CURRENT MEDICATIONS: Reviewed and include: 1. Tylenol p.r.n. 2. [place] q.6 p.r.n. 3. Ventolin HFA 2 puffs q.i.d. p.r.n. 4. Xanax 0.5 t.i.d. 5. Zithromax 500 mg b.i.d. 7. Lovenox 40 mg daily. 8. Folic acid. 9. Ativan. 10.Multivitamins. 11.Narcan. 12.Protonix. 13.Zosyn 3.25 IV q.8. 14.Risperdal. 15.Flomax. 16.Vitamin B1. PHYSICAL EXAM: Patient is alert, oriented x1. Pulse 67, blood pressure 136/80, respiration 18, temperature 98 degrees, pulse ox 98% on room air. HEENT: S1, S2 muffled. RESPIRATORY: Breath sounds diminished at the bases, a few scattered rhonchi. No crackles. ABDOMEN: Soft, nontender. No mass palpable. LEGS: No edema, no swelling. NERVOUS SYSTEM: No focal deficits. LABS: WBC 6.2, hemoglobin 7.2, platelets 143, and D-dimer is 2.65 and CRP is 54.7. UA noted. Cultures are pending at this time. COVID-19 influenza negative. Urine culture showed Klebsiella, which is poly sensitive. ASSESSMENT: 1. Acute urinary tract infection with Klebsiella with sepsis, present on admission, not related to Boland catheter. 2. 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 3. Continued fever, rule out COVID-19. 4. Change in mental status, metabolic encephalopathy, acute on chronic. 5. Severe dementia. 6. Severe gait dysfunction. 7. Anemia. 8. Macrocytosis with possibly nutritional anemia. 9. Elevated D-dimer. 10.No evidence of pneumonia in the chest x-ray. 11.History of gastroesophageal reflux disease. 12.History of BPH. 13.History of kidney stones. 14.History of hernia repair. 15.Remote history of nicotine dependence. 16.FULL CODE. RECOMMENDATION: This 85-year-old gentleman who presented with multiple complex medically issues, will monitor the patient closely, continue with the current management, continue with the antibiotics as mentioned earlier. Also discussed the case at length. Surgery was recommended. Surgical procedure regarding evaluation of the mass lesion seen in the CT scan. Colonoscopy is thought to be a less informant. No information from recent procedures. At this time, will proceed with surgery if okay with the patient's family and continue to monitor. Once again, the prognosis guarded. Further recommendations to follow. MMMAGALYL / TOIN: [id number] / MTDD
--- NOTE | 2020-01-09 18:15 | PN ---
PROGRESS NOTE DATE OF SERVICE: 01/09/2020 REASON FOR FOLLOWUP: Fever, UTI and a question of diverticulitis. INTERVAL HISTORY: The patient is currently afebrile. The patient seems to be more awake, alert, but denies having any chest pain or any cough or any abdominal pain. No vomiting. PHYSICAL EXAMINATION: Blood pressure 163/89 with a pulse of 70, temperature 98.9. He is 95% on room air. General description is an elderly male up in the chair in no distress. RESPIRATORY SYSTEM: Unlabored breathing with decreased intensity of breath sounds. No wheeze. HEART: S1, S2. Regular rate and rhythm. ABDOMEN: Soft. No tenderness. LABS: Hemoglobin 11.1, white count 6.3, BUN of 20, creatinine 0.75. Urine has been finalized with Klebsiella pneumoniae. Blood culture has been negative so far. DIAGNOSTIC IMPRESSION AND PLAN: Patient with fever, more likely due to his Klebsiella urinary tract infection. However, the patient did have abnormal CT with concern for possible constricting sigmoid neoplasm with concern for possible diverticulitis. The patient's fever responded to Zosyn; that will be continued and we will monitor his clinical course closely. MMODL / IJN: [id number] /
[2020-01-09] MEDS: risperiDONE 0.25 MG TAB PO SCH (20:14)
[2020-01-09] MEDS: DONEPEZIL 10 MG TAB PO SCH (20:14)
[2020-01-10] MEDS: SODIUM CHLORIDE 0.9% 1,000 ML IV SCH ×2 (02:03→17:52)
[2020-01-10] MEDS: ALBUTEROL HFA INHALER INHALATION PRN ×2 (07:21→11:12)
[2020-01-10 07:51] LABS: Basophils # (A) 0.1 k/uL (0-0.2); Basophils % (A) 1 %; Eosinophils # (A) 0.3 k/uL (0-0.7); Eosinophils % (A) 4 %; HCT 35.6 % (39.0-53.0); HGB 11.5 gm/dL (13.0-17.5); Lymphocytes # (A) 0.6 k/uL (1.0-4.8); Lymphocytes % (A) 8 %; MCH 30.6 pg (25.0-35.0); MCHC 32.2 g/dL (31.0-37.0); MCV 95.2 fL (80.0-100.0); Mean Platelet Volume 7.2; Monocytes # (A) 0.4 k/uL (0-1.0); Monocytes % (A) 6 %; Neutrophils # (A) 5.5 k/uL (1.3-7.7); Neutrophils % (A) 77 %; Platelet Count 177 k/uL (150-450); RBC 3.75 m/uL (4.30-5.90); RDW 14.1 % (11.5-15.5); WBC 7.1 k/uL (3.8-10.6)
[2020-01-10 07:59] LABS: African American GFR (CKD) >90 (>60 ml/min/1.73 sqM); Anion Gap 9 mmol/L; Blood Urea Nitrogen 17 mg/dL (9-20); Calcium 8.2 mg/dL (8.4-10.2); Carbon Dioxide 23 mmol/L (22-30); Chloride 109 mmol/L (98-107); Glucose 73 mg/dL (74-99); Non-African American GFR(CKD) 89 (>60 ml/min/1.73 sqM); Potassium 3.7 mmol/L (3.5-5.1); Sodium 141 mmol/L (137-145)
[2020-01-10] MEDS: TAMSULOSIN 0.4 MG CAP.ER.24H PO SCH (08:20)
[2020-01-10] MEDS: PANTOPRAZOLE 40 MG TABLET PO SCH (08:20)
[2020-01-10] MEDS: PIPERACILLIN-TAZOBACTAM 3.375 GM in SODIUM CHLORIDE 0.9% 100 ML IVPB SCH ×3 (08:31→23:32)
[2020-01-10] MEDS ORDERED: NON FORMULARY DRUG (Omeprazole 40 MG) PO SCH (09:00)
[2020-01-10] MEDS ORDERED: LIDOCAINE 1% INJ 10MG/ML (20 ML MDV) ONE (12:12)
[2020-01-10] MEDS ORDERED: PHENYLEPHRINE-0.9% NACL SYG 1 MG/10 ML SYRINGE ONE (12:12)
[2020-01-10] MEDS ORDERED: MIDAZOLAM 2 MG/2 ML VIAL ONE (12:12)
[2020-01-10] MEDS ORDERED: SODIUM CHLORIDE 0.9% 100 ML with ceFAZolin 2,000 MG IV ONE ×2 (12:12)
[2020-01-10] MEDS ORDERED: PROPOFOL 10 MG/ML 20 ML VIAL IV ONE (12:12)
[2020-01-10] MEDS ORDERED: LACTATED RINGERS 1,000 ML IV ONE (12:12)
[2020-01-10] MEDS ORDERED: NEOSTIGMINE 1 MG/ML 10 ML VIAL ONE (12:12)
[2020-01-10] MEDS ORDERED: ROCURONIUM BROMIDE 10 MG/ML 5 ML VIAL IV ONE (12:12)
[2020-01-10] MEDS ORDERED: GLYCOPYRROLATE 0.2 MG/ML 2 ML VIAL ONE (12:12)
[2020-01-10] MEDS ORDERED: SUCCINYLCHOLINE CHLORIDE 100 MG/5 ML SYR IV ONE (12:12)
[2020-01-10] MEDS ORDERED: fentaNYL (PF) 50 MCG/ML 2 ML AMP ONE (12:12)
[2020-01-10] MEDS: THIAMINE 100 MG TAB PO SCH (12:21)
[2020-01-10] MEDS: MULTIVITAMINS, THERA 1 EACH TAB PO SCH (12:21)
[2020-01-10] MEDS: FOLIC ACID 1 MG TAB PO SCH (12:21)
--- NOTE | 2020-01-10 13:33 | P.OP ---
Date of Procedure: 01/10/20 Preoperative Diagnosis: Sigmoid colon mass Diverticulosis Postoperative Diagnosis: Severe diverticulosis of sigmoid colon with inflammatory changes; Procedure(s) Performed: Low anterior section Anesthesia: KEVINA Surgeon: Amandeep Tellez Estimated Blood Loss (ml): 25 Pathology: other (Sigmoid colon) Condition: stable Disposition: PACU Description of Procedure: DESCRIPTION OF PROCEDURE: The patient was placed on the operating table in the supine position. Patient received a general anesthesia. Patient was then placed in the dorsal lithotomy position. The patient's s abdomen was prepped and draped in the usual sterile fashion. Through a low midline incision, the abdomen was entered. The [place] retractor was placed in the wound. The stomach appeared normal. The small bowel appeared normal. The liver appeared normal. The right colon and transverse colon appeared normal. On the left colon, there was an mild diverticulosis noted. The sigmoid colon had extensive diverticular changes extending to the rectum. There is no evidence of any colonic masses. The sigmoid colon was then mobilized by dividing the white line of [place] with electrocautery. An enterotomy is made and the 25 mm EEA stapler anvil was placed into the sigmoid colon. The enterotomy is closed with 3-0 GI silk. At this point, the proximal sigmoid colon was transected with a GI stapler after a window had been made in the mesentery. The distal sigmoid colon was then d issected. Mesentery was taken down between Lois clamps and ligated with #0 silk ties and the [place] device.. At a point beyond the lesion, the bowel was then transected with a contour stapler. This was then removed. ed. The EEA stapler device was then placed in the patients anus and passed into the rectum. The nail for the EEA was then brought out through the distal rectum and then attached to the anvil. The EEA stapler device was then fired. The anastomosis was inspected. There were 2 good donuts of tissue removed from the EEA stapler. The anastomosis was then tested under water and there was no air leak seen. At this point the abdomen was then irrigated. There was no bleeding seen. The fascia was then closed with double stranded #1 PDS. The skin was closed with albino. The patient tolerated the procedure well.
[2020-01-10] MEDS ORDERED: ONDANSETRON 4 MG/2 ML VIAL IVP PRN (13:35)
[2020-01-10] MEDS ORDERED: MORPHINE SULFATE 2 MG/ML SYRINGE IVP STA (14:27)
[2020-01-10 15:37] LABS: Basophils # (A) 0.1 k/uL (0-0.2); Basophils % (A) 1 %; Eosinophils # (A) 0.1 k/uL (0-0.7); Eosinophils % (A) 1 %; HGB 13.4 gm/dL (13.0-17.5); Lymphocytes # (A) 0.5 k/uL (1.0-4.8); Lymphocytes % (A) 5 %; MCHC 32.6 g/dL (31.0-37.0); MCV 94.9 fL (80.0-100.0); Mean Platelet Volume 6.8; Monocytes # (A) 0.4 k/uL (0-1.0); Monocytes % (A) 4 %; Neutrophils # (A) 8.2 k/uL (1.3-7.7); Neutrophils % (A) 87 %; Platelet Count 209 k/uL (150-450); RBC 4.32 m/uL (4.30-5.90); WBC 9.4 k/uL (3.8-10.6)
--- NOTE | 2020-01-10 15:39 | XR ---
EXAMINATION TYPE: XR chest 1V portable DATE OF EXAM: 01/10/2020 COMPARISON: 01/08/2020 HISTORY: Arrhythmia TECHNIQUE: Single frontal view of the chest is obtained. FINDINGS: External structure overlies the superior mediastinal borders and mid clavicular borders. Mu ltiple overlying lines are seen. There is no focal air space opacity, pleural effusion, or pneumothor ax seen. The cardiac silhouette size is stable in size. The osseous structures are intact. There i s diffuse osseous demineralization. IMPRESSION: Chronic findings with no acute cardiopulmonary process.
--- NOTE | 2020-01-10 15:45 | PN ---
PROGRESS NOTE DATE OF SERVICE: 01/10/2020 This 85-year-old gentleman who was admitted initially with a fever was found to have sigmoid colon malignancy per the CT scan. The patient had Klebsiella UTI also. Dr. Tellez saw the patient and performed low anterior resection for severe diverticulosis with inflammatory changes noted. The patient is being closely monitored. Past medical history reviewed. Review of systems could not be taken; the patient is confused. CURRENT MEDICATIONS: Reviewed. They include: 1. Tylenol 650 q.6 p.r.n. 2. Dexter 5 mg q.6. 3. Xanax 0.25 t.i.d. 4. Entereg 12 mg p.o. b.i.d. 5. Zithromax 500 mg daily. 6. Aricept. 7. Lovenox. 8. Ativan. 9. Multivitamins. 10.Narcan. 11.Zofran. 12.Protonix. 13.Zosyn IV. 14.Risperdal. 15.Flomax. 16.Vitamin B1. Doses are reviewed. PHYSICAL EXAMINATION: Pulse is 71, blood pressure 134/66, respiration 20, temperature 98.1, pulse ox 98% on room air. HEENT: Conjunctivae normal. Oral mucosa moist. NECK: No jugular venous distention. No carotid bruit. No lymph node enlargement. CARDIOVASCULAR SYSTEM: S1, S2 muffled. RESPIRATORY SYSTEM: Breath sounds diminished at the bases. A few scattered rhonchi and crackles. ABDOMEN: Soft, status post surgery. LEGS: No edema. No swelling. NERVOUS SYSTEM: No focal deficit. LABS: WBC 7.1, hemoglobin 11.5, sodium 141, potassium 3.7. C-reactive protein is 254.7. Influenza negative. ASSESSMENT: 1. Acute severe diverticulosis, sigmoid colon, with inflammatory changes, status post low anterior resection. Rule out constricting tumor. 2. Acute urinary tract infection with Klebsiella with sepsis, present on admission, not related to Boland catheter. 3. COVID-19 ruled out. 4. Change in mental status, metabolic encephalopathy, acute on chronic. 5. Severe dementia. 6. Severe gait dysfunction. 7. Anemia. 8. Macrocytosis with possible interstitial anemia. 9. Elevated D-dimer. 10.No evidence of pneumonia on the chest x-ray. 11.History of gastroesophageal reflux disease. 12.History of benign prostatic hypertrophy. 13.History of kidney stones. 14.History of hernia repair. 15.Remote history of nicotine dependence. 16.FULL CODE. RECOMMENDATIONS AND DISCUSSION: I recommend to continue current medications, continue with monitoring, symptomatic treatment. Continue the broad-spectrum IV antibiotics and follow cultures. As mentioned earlier, the patient had Klebsiella pneumoniae grown from the culture which is polysensitive. Closely follow with Surgery. See orders for further details. DVT prophylaxis. Prognosis guarded. Further recommendations to follow. MMODL / IJN: [id number] /
[2020-01-10 15:53] LABS: ALT 28 U/L (4-49); AST 52 U/L (17-59); African American GFR (CKD) >90 (>60 ml/min/1.73 sqM); Albumin 3.2 g/dL (3.5-5.0); Alkaline Phosphatase 130 U/L (38-126); Anion Gap 11 mmol/L; Blood Urea Nitrogen 16 mg/dL (9-20); Calcium 8.5 mg/dL (8.4-10.2); Carbon Dioxide 22 mmol/L (22-30); Chloride 107 mmol/L (98-107); Glucose 91 mg/dL (74-99); Non-African American GFR(CKD) >90 (>60 ml/min/1.73 sqM); Potassium 3.6 mmol/L (3.5-5.1); Sodium 140 mmol/L (137-145); Total Protein 6.4 g/dL (6.3-8.2)
--- NOTE | 2020-01-10 16:45 | PN ---
PROGRESS NOTE DATE OF SERVICE: 01/10/2020 REASON FOR FOLLOWUP: UTI and diverticulitis. INTERVAL HISTORY: The patient was taken to the OR this morning. The patient is status post laparotomy, low anterior resection. He was noted to have significant diverticulitis with inflammatory changes. Post surgery the patient went into atrial fibrillation with RVR, for which the patient was transferred to the telemetry floor. The patient denies having any chest pain or shortness of breath or cough. He has some pain to the abdominal area post surgery but no nausea or vomiting has been reported. PHYSICAL EXAMINATION: Blood pressure 134/66, pulse of 71, temperature 98.1. He is 98% on room air. General description is an elderly male lying in bed in no distress. RESPIRATORY SYSTEM: Unlabored breathing. Clear to auscultation anteriorly. HEART: S1, S2. Regular rate and rhythm. ABDOMEN: Soft. No distention. LABS: Hemoglobin 13.4, white count 9.4, BUN of 16, creatinine 0.60. DIAGNOSTIC IMPRESSION AND PLAN: Patient with a fever. Source is multifactorial in this patient who did have a Klebsiella UTI and also diverticulitis. This patient is status post low anterior resection. Patient is covered with Zosyn; to continue and monitor his clinical course closely. MMODL / IJN: [id number] /
[2020-01-10] MEDS: ENOXAPARIN 40 MG/0.4 ML SYRINGE SQ SCH (16:59)
[2020-01-10] MEDS ORDERED: HYDROmorphone 1 MG/ML 1 ML SYRINGE IVP PRN (17:23)
[2020-01-10] MEDS ORDERED: ENALAPRILAT 1.25 MG/ML 1 ML VIAL IVP ONE (17:35)
[2020-01-10] MEDS: AZITHROMYCIN 500 MG TAB PO SCH (17:43)
[2020-01-10] MEDS: ACETAMINOPHEN TAB 325 MG TAB PO PRN (19:23)
[2020-01-10] MEDS: D5-0.45% NACL WITH KCL 20MEQ/L 1,000 ML IV SCH ×2 (20:37→20:59)
[2020-01-10] MEDS: DONEPEZIL 10 MG TAB PO SCH (20:58)
[2020-01-10] MEDS: risperiDONE 0.25 MG TAB PO SCH (20:58)
[2020-01-10] MEDS: ALVIMOPAN 12 MG CAPSULE PO SCH (20:58)
[2020-01-11] MEDS: SODIUM CHLORIDE 0.9% 1,000 ML IV SCH ×2 (02:24→17:09)
[2020-01-11 04:08] LABS: Glucose,Whole Blood 121 mg/dL (75-99)
[2020-01-11 04:13] LABS: Basophils % (A) 0 %; Eosinophils % (A) 0 %; HCT 37.4 % (39.0-53.0); HGB 11.5 gm/dL (13.0-17.5); Lymphocytes # (A) 0.5 k/uL (1.0-4.8); Lymphocytes % (A) 4 %; MCH 29.5 pg (25.0-35.0); MCHC 30.8 g/dL (31.0-37.0); MCV 95.8 fL (80.0-100.0); Mean Platelet Volume 7.3; Monocytes # (A) 0.5 k/uL (0-1.0); Monocytes % (A) 4 %; Neutrophils # (A) 12.6 k/uL (1.3-7.7); Neutrophils % (A) 90 %; Platelet Count 247 k/uL (150-450)
[2020-01-11 04:46] LABS: African American GFR (CKD) >90 (>60 ml/min/1.73 sqM); Anion Gap 9 mmol/L; Blood Urea Nitrogen 21 mg/dL (9-20); Calcium 8.3 mg/dL (8.4-10.2); Carbon Dioxide 23 mmol/L (22-30); Chloride 107 mmol/L (98-107); Glucose 123 mg/dL (74-99); Non-African American GFR(CKD) 82 (>60 ml/min/1.73 sqM); Potassium 3.7 mmol/L (3.5-5.1); Sodium 139 mmol/L (137-145)
[2020-01-11] MEDS: PIPERACILLIN-TAZOBACTAM 3.375 GM in SODIUM CHLORIDE 0.9% 100 ML IVPB SCH ×2 (08:32→17:07)
[2020-01-11] MEDS ORDERED: SODIUM CHLORIDE 0.9% 500 ML 500 ML IV ONE (09:03)
--- NOTE | 2020-01-11 10:02 | P.PN ---
Subjective Progress Note Date: 01/11/20 Principal diagnosis: Diverticulitis Patient doing better this morning. Yesterday evening he had some bloody stools. 3 in total. Largest one about 250 mL. Today's hemoglobin stable at 11.5. Urine output slightly low. Denies pain currently. Appears slightly confused. He is afebrile currently however had a temp of 103 yesterday. Objective - Vital Signs Vital signs: Vital Signs Temp 98.3 F 01/11/20 08:00 Pulse 83 01/11/20 08:00 Resp 17 01/11/20 08:00 BP 138/79 01/11/20 08:00 Pulse Ox 94 L 01/11/20 08:00 Intake & Output 01/10/20 01/11/20 01/11/20 18:59 06:59 18:59 Intake Total 700 225 150 Output Total 96 155 50 Balance 604 70 100 Intake: IV 700 225 150 D5-0.45% NaCl with KCl 225 150 20Meq/l 1,000 ml @ 125 mls/hr IV .Q8H [facility] Rx#: [id number] Output: Urine 51 155 50 Stool 0 Estimated Blood Loss 45 Other: Voiding Method Diaper Indwelling Catheter Incontinent # Voids 3 1 # Bowel Movements 1 - Exam Abdomen: Soft, nondistended, mild tenderness, dressing clean and dry - Labs CBC & Chem 7: 01/11/20 03:36 01/11/20 03:36 Labs: Abnormal Lab Results - Last 24 Hours (Table) 01/10/20 01/10/20 01/11/20 Range/Units 15:28 15:28 03:36 WBC 14.0 H (3.8-10.6) k/uL RBC 3.90 L (4.30-5.90) m/uL Hgb 11.5 L (13.0-17.5) gm/dL Hct 37.4 L (39.0-53.0) % MCHC 30.8 L (31.0-37.0) g/dL Neutrophils # 8.2 H 12.6 H (1.3-7.7) k/uL Lymphocytes # 0.5 L 0.5 L (1.0-4.8) k/uL BUN (9-20) mg/dL Creatinine 0.60 L (0.66-1.25) mg/dL Glucose (74-99) mg/dL POC Glucose (mg/dL) (75-99) mg/dL Calcium (8.4-10.2) mg/dL Alkaline Phosphatase 130 H (38-126) U/L Albumin 3.2 L (3.5-5.0) g/dL 01/11/20 01/11/20 Range/Units 03:36 04:06 WBC (3.8-10.6) k/uL RBC (4.30-5.90) m/uL Hgb (13.0-17.5) gm/dL Hct (39.0-53.0) % MCHC (31.0-37.0) g/dL Neutrophils # (1.3-7.7) k/uL Lymphocytes # (1.0-4.8) k/uL BUN 21 H (9-20) mg/dL Creatinine (0.66-1.25) mg/dL Glucose 123 H (74-99) mg/dL POC Glucose (mg/dL) 121 H (75-99) mg/dL Calcium 8.3 L (8.4-10.2) mg/dL Alkaline Phosphatase (38-126) U/L Albumin (3.5-5.0) g/dL Microbiology - Last 24 Hours (Table) 01/06/20 15:23 Blood Culture - Preliminary Blood No Growth after 96 hours Assessment and Plan (1) Diverticulitis Narrative/Plan: Patient doing better this morning. Monitor urine output. Repeat CBC tomorrow. Continue clear liquids. Possible transfer back to floor if urine output improved. Current Visit: Yes Status: Acute Code(s): K57.92 - DVTRCLI OF INTEST, PART UNSP, W/O PERF OR ABSCESS W/O BLEED SNOMED Code(s): 041186160
[2020-01-11] MEDS: ALVIMOPAN 12 MG CAPSULE PO SCH ×2 (10:03→21:22)
[2020-01-11] MEDS: TAMSULOSIN 0.4 MG CAP.ER.24H PO SCH (10:04)
[2020-01-11] MEDS: PANTOPRAZOLE 40 MG TABLET PO SCH (10:04)
[2020-01-11] MEDS: D5-0.45% NACL WITH KCL 20MEQ/L 1,000 ML IV SCH ×3 (10:05→21:24)
[2020-01-11] MEDS: FOLIC ACID 1 MG TAB PO SCH (12:06)
[2020-01-11] MEDS: MULTIVITAMINS, THERA 1 EACH TAB PO SCH (12:06)
[2020-01-11] MEDS: THIAMINE 100 MG TAB PO SCH (12:06)
--- NOTE | 2020-01-11 12:52 | P.CRDCN ---
History of Present Illness Consult date: 01/11/20 Requesting physician: Amandeep Tellez Reason for Consult (text): Postoperative atrial fibrillation History of present illness: This 89-year-old gentleman who does not follow with a primary care physician on a regular basis on the outpatient setting. He has a past medical history significant for dementia, history of BPH, nephrolithiasis and GERD. On 01/06/2020 the patient presented to the emergency department here at [facility] for low-grade fevers which he had for 3 days prior to his presentation to the ER, a mild cough and generalized weakness with difficulty walking on his own. According to his chart he also had complaints of abdominal pain, chest pain and shortness of breath. Due to the patient's dementia he is a poor historian. In the emergency department a 12-lead EKG was completed which demonstrated normal sinus rhythm with a heart rate of 78. According to his chart there was no complaints of chest pain, shortness of breath, abdominal pain, nausea, vomiting or diarrhea. Subsequently a computed tomography scan of his abdomen and pelvis were completed which demonstrated a masklike annular narrowing of the distal sigmoid colon concerning for sigmoid neoplasm. Dr. Tellez from general surgery was consulted and on 01/10/2020 the patient was taken to the operating room where he underwent a low anterior resection performed by Dr. Tellez with findings of severe diverticulosis of sigmoid colon with inflammatory changes. Subsequently, postoperatively the patient developed atrial fibrillation with a heart rate in the low 100s. He was initially started on a Cardizem drip and converted shortly thereafter to normal sinus rhythm. Due to the postoperative atrial fibrillation Dr. Schaefer from cardiology was consulted for further evaluation and treatment recommendations. Currently the patient is in normal sinus rhythm heart rate 82. He does open up his eyes to verbal stimuli, denies any shortness of breath although is complaining of some mild abdominal tenderness. His bedside telemetry showing normal sinus rhythm heart rate 89, blood pressure is 132/78 and he is 93% on room air. Review of Systems A 14 point review of systems was completed and was negative except as mentioned in the HPI, which was obtained from the chart.. Past Medical History Past Medical History: Dementia, GERD/Reflux, Prostate Disorder Additional Past Medical History / Comment(s): bph, kidney stone History of Any Multi-Drug Resistant Organisms: None Reported Past Surgical History: Hernia Repair Additional Past Surgical History / Comment(s): kidney stone removal Past Anesthesia/Blood Transfusion Reactions: No Reported Reaction Additional Psychological History / Comment(s): History of dementia Smoking Status: Former smoker Past Alcohol Use History: None Reported Past Drug Use History: None Reported Medications and Allergies Home Medications Medication Instructions Recorded Confirmed Type Acetaminophen [Tylenol] 500 mg PO Q6H PRN 01/06/20 01/06/20 History Donepezil [Aricept] 10 mg PO HS 01/06/20 01/06/20 History Loratadine [Claritin] 10 mg PO DAILY 01/06/20 01/06/20 History Omeprazole [PriLOSEC] 40 mg PO DAILY 01/06/20 01/06/20 History Tamsulosin HCl [Flomax] 0.4 mg PO DAILY 01/06/20 01/06/20 History Allergies Allergy/AdvReac Type Severity Reaction Status Date / Time No Known Allergies Allergy Verified 01/06/20 19:17 Physical Exam Vitals: Vital Signs Temp Pulse Pulse Resp BP BP Pulse Ox 01/11/20 11:00 87 22 146/75 01/11/20 10:00 82 23 138/93 94 L 01/11/20 09:00 83 22 146/110 94 L 01/11/20 08:00 98.3 F 83 22 138/79 94 L 01/11/20 07:00 80 20 128/77 92 L 01/11/20 06:00 76 20 135/89 94 L 01/11/20 05:00 78 21 136/73 93 L 01/11/20 04:00 98.4 F 77 22 136/73 93 L 01/11/20 03:12 98.7 F 83 17 159/74 96 01/11/20 01:51 98.0 F 77 17 143/80 93 L 01/10/20 21:15 100.2 F H 01/10/20 19:13 103.4 F H 105 H 17 151/77 97 01/10/20 17:00 104 H 178/98 98 01/10/20 16:45 103 H 152/98 98 01/10/20 16:30 106 H 158/88 98 01/10/20 16:15 99 172/100 98 01/10/20 16:00 104 H 18 156/100 98 01/10/20 15:45 89 154/81 100 05/01/20 15:15 129 H 132/77 100 01/10/20 15:00 88 159/77 99 01/10/20 14:45 140 H 162/98 100 01/10/20 14:30 124 H 165/114 98 01/10/20 14:20 140 H 189/103 97 01/10/20 14:15 86 176/97 97 01/10/20 14:00 97.4 F L 92 191/98 93 L Intake and Output 01/10/20 01/11/20 01/11/20 22:59 06:59 14:59 Intake Total 225 800 Output Total 0 155 110 Balance 0 70 690 Intake: IV 225 300 D5-0.45% NaCl with KCl 225 300 20Meq/l 1,000 ml @ 125 mls/hr IV .Q8H [facility] Rx#: [id number] Intake, IV Titration 500 Amount Sodium Chloride 0.9% 500 500 ml 500 ml @ 999 mls/hr IV .Q31M [facility] Rx#:[id number] Output: Urine 155 110 Stool 0 Other: Voiding Method Indwelling Catheter Indwelling Catheter # Voids 1 # Bowel Movements 1 This is a pleasant 85-year-old gentleman who is resting comfortably in his bed in the intensive care unit. He opens up his eyes to verbal stimuli. He is in no acute distress. Oxygen saturation are 93% on room air. - Constitutional General appearance: cooperative, no acute distress - EENT Eyes: PERRLA ENT: normal oropharynx - Neck Neck is supple, no JVD. - Respiratory Lung sounds are essentially clear to his bilateral upper lobes, diminished bilateral bases. No wheezes, rhonchi present. Respirations are symmetrical and nonlabored. - Cardiovascular Regular rhythm and rate. S1 and S2 present, negative for S3, gallop or murmur. - Gastrointestinal Abdomen is soft, mild palpable tenderness, and nondistended. Hypoactive bowel sounds present in all 4 abdominal quadrants. No guarding or rigidity. - Integumentary Skin is warm and dry. Integumentary: no rash - Musculoskeletal Musculoskeletal: generalized weakness, strength equal bilaterally - Psychiatric Alert and oriented 1. Results - Results Results: Coronavirus not detected 01/11/20 03:36 01/11/20 03:36 Cardiac Enzymes 01/10/20 01/10/20 Range/Units 15:28 15:28 AST 52 (17-59) U/L Troponin I <0.012 (0.000-0.034) ng/mL CBC 01/10/20 01/11/20 Range/Units 15: 03:36 WBC 9.4 14.0 H (3.8-10.6) k/uL RBC 4.32 3.90 L (4.30-5.90) m/uL Hgb 13.4 11.5 L (13.0-17.5) gm/dL Hct 41.0 37.4 L (39.0-53.0) % Plt Count 209 247 (150-450) k/uL Comprehensive Metabolic Panel 01/10/20 01/11/20 Range/Units 15: 03:36 Sodium 140 139 (137-145) mmol/L Potassium 3.6 3.7 (3.5-5.1) mmol/L Chloride 107 107 (98-107) mmol/L Carbon Dioxide 22 23 (22-30) mmol/L BUN 16 21 H (9-20) mg/dL Creatinine 0.60 L 0.79 (0.66-1.25) mg/dL Glucose 91 123 H (74-99) mg/dL Calcium 8.5 8.3 L (8.4-10.2) mg/dL AST 52 (17-59) U/L ALT 28 (4-49) U/L Alkaline Phosphatase 130 H (38-126) U/L Total Protein 6.4 (6.3-8.2) g/dL Albumin 3.2 L (3.5-5.0) g/dL Current Medications Generic Name Dose Route Start Last Admin Trade Name Freq PRN Reason Stop Dose Admin Acetaminophen 650 mg 01/06/20 16:37 01/10/20 19:23 Tylenol Tab PO 650 mg Q6HR PRN Administration Mild Pain or Fever > 100.5 Hydrocodone Bitart/Acetaminophen 1 each 01/06/20 17:22 [place] 5-325 PO Q6HR PRN Pain Albuterol Sulfate 2 puff 01/09/20 08:17 01/10/20 11:12 Ventolin Hfa Inhaler INHALATION 2 puff RT-QID PRN Administration Shortness Of Breath Or Wheezin Alprazolam 0.25 mg 01/06/20 17:22 01/07/20 12:41 Xanax PO 0.25 mg TID PRN Administration Anxiety Alvimopan 12 mg 01/10/20 21:00 01/11/20 10:03 Entereg PO 01/17/20 09:01 Not Given BID TAO Azithromycin 500 mg 01/07/20 17:00 01/10/20 17:43 Zithromax PO 500 mg Q24H TAO Administration Donepezil HCl 10 mg 01/09/20 21:00 01/10/20 20:58 Aricept PO 10 mg HS TAO Administration Enoxaparin Sodium 40 mg 01/08/20 16:00 01/10/20 16:59 Lovenox SQ Not Given Q24H TAO Folic Acid 1 mg 01/07/20 12:00 01/11/20 12:06 Folic Acid PO 1 mg DAILY@1200 TAO Administration Hydromorphone HCl 1 mg 01/10/20 17:23 Dilaudid IVP Q3HR PRN Pain Sodium Chloride 1,000 mls @ 75 mls/hr 01/06/20 16:45 01/11/20 02:24 Saline 0.9% IV Not Given .[id number] TAO Piperacillin Sod/Tazobactam 100 mls @ 25 mls/hr 01/09/20 00:00 01/11/20 08:32 Sod 3.375 gm/ Sodium Chloride IVPB 25 mls/hr Q8HR [facility]O Administration Potassium Chloride/Dextrose/Sod Cl 1,000 mls @ 125 mls/hr 01/10/20 15:00 01/11/20 10:05 D5%-1/2ns-Kcl 20 Meq/L Iv Solution IV 125 mls/hr .Q8H TAO Administration Lorazepam 0.5 mg 01/06/20 17:24 01/07/20 13:46 Ativan IV 0.5 mg Q4HR PRN Administration Anxiety Multivitamins 1 each 01/07/20 12:00 01/11/20 12:06 Theragran PO 1 each DAILY@1200 [facility] Administration Naloxone HCl 0.2 mg 01/06/20 16:37 Narcan IV Q2M PRN Opioid Reversal Ondansetron HCl 4 mg 01/10/20 13:35 Zofran IVP Q8HR PRN Nausea And Vomiting Pantoprazole Sodium 40 mg 01/06/20 17:30 01/11/20 10:04 Protonix PO 40 mg [id number] TAO Administration Risperidone 0.125 mg 01/06/20 21:00 01/10/20 20:58 Risperdal PO 0.125 mg HS TAO Administration Tamsulosin HCl 0.4 mg 01/10/20 09:00 01/11/20 10:04 Flomax PO 0.4 mg DAILY TAO Administration Thiamine HCl 100 mg 01/07/20 12:00 01/11/20 12:06 Vitamin B-1 PO 100 mg DAILY@1200 TAO Administration Intake and Output 01/10/20 01/11/20 01/11/20 22:59 06:59 14:59 Intake Total 225 800 Output Total 0 155 110 Balance 0 70 690 Intake: IV 225 300 D5-0.45% NaCl with KCl 225 300 20Meq/l 1,000 ml @ 125 mls/hr IV .Q8H [facility] Rx#: [id number] Intake, IV Titration 500 Amount Sodium Chloride 0.9% 500 500 ml 500 ml @ 999 mls/hr IV .Q31M [facility] Rx#:[id number] Output: Urine 155 110 Stool 0 Other: Voiding Method Indwelling Catheter Indwelling Catheter # Voids 1 # Bowel Movements 1 01/11/20 03:36 01/11/20 03:36 - EKG Interpretation EKG: sinus rhythm EKG shows: sinus rhythm Assessment and Plan Assessment: 1. Postoperative paroxysmal atrial fibrillation, currently normal sinus rhythm 2. Acute severe diverticulosis, sigmoid colon with inflammatory changes, status post low anterior resection 2. COVID 19, negative 3. Acute urinary tract infection with Klebsiella with sepsis, present on admission and is on Zosyn and Zithromax for antibiotic coverage 4. Change in mental status, metabolic encephalopathy, acute on chronic 5. Severe dementia 6. Anemia 7. Generalized weakness with severe gait dysfunction 8. History of gastroesophageal reflux disease 9. History of kidney stones 10. History of benign prostatic hypertrophy 11. Remote history of nicotine dependence. Plan: 1. We will obtain a 2-D echocardiogram for evaluation of his LV function. 2. TSH level was obtained. TSH level was 2.330. 3. We will start him on metoprolol tartrate 25 mg by mouth twice a day. 4. More recommendations to follow based on patient's clinical course. Nurse practitioner note has been reviewed, I agree with a documented findings and plan of care. Patient was seen and examined. Time with Patient: Greater than 30
--- NOTE | 2020-01-11 13:26 | P.CNPUL ---
History of Present Illness Consult date: 01/11/20 Requesting physician: Susan Chisholm Reason for consult: other (Lower GI bleeding, IC management) Chief complaint: Bright red blood per rectum History of present illness: This is an 85-year-old white male with history of multiple medical problems including dementia, GERD, diverticular disease, patient was admitted on 01/06/20, and his admitting diagnoses was related to low-grade fever, and generalized weakness, mild cough, difficulty walking on his own. Patient was also complaining of abdominal pain, chest discomfort, and apparently the patient was a very poor historian. Patient underwent workup including a CT of the abdomen and pelvis, and question the possibility of a masslike annular narrowing of the distal sigmoid colon and the concern was possible sigmoid neoplasm. Dr. Tellez was consulted, and the patient underwent low anterior resection. Patient was found to have severe diverticular disease, and inflammatory changes, but no mass was noted. Patient was eventually transferred to a regular medical floor, and early this morning, the patient developed significant amount of bright red blood per rectum. Surgery was notified, and I recommended transferring the patient to the ICU. Patient remained hemodynamically stable. Did not require any blood transfusion, and when I evaluated the patient this morning he was doing just fine. Patient was on room air. His blood pressure was normal. Heart rate was 80. And he was in no form of distress. Repeat hemoglobin this morning was 11.5, his hemoglobin on admission was 11.2, went as high as 13.4 yesterday. According to the ICU nurse, patient had no further episodes of lower GI bleeding. And he had no complaints. Hence I recommended transferring the patient back to regular medical floor, he is being followed by surgery and by cardiology for atrial fibrillation with RVR. Patient was in sinus rhythm when I saw him this morning. During this admission he was noted to have acute urinary tract infection secondary to Klebsiella, and he is on proper antibiotics, being followed by infectious disease. Chest x-ray showed mostly minimal atelectasis at the bases, no evidence of pneumonia and no evidence of congestive heart failure. Review of Systems Constitutional: Weakness and fatigue. HEENT: Negative Cardiac: Negative Pulmonary: Negative GI: As noted in HPI. Genitourinary: Negative although the patient does have evidence of UTI. Neurologic: History of dementia. Psychiatric: Negative Hematologic: Negative Skin: Negative. Lymphatics: Negative Past Medical History Past Medical History: Dementia, GERD/Reflux, Prostate Disorder Additional Past Medical History / Comment(s): bph, kidney stone History of Any Multi-Drug Resistant Organisms: None Reported Past Surgical History: Hernia Repair Additional Past Surgical History / Comment(s): kidney stone removal Past Anesthesia/Blood Transfusion Reactions: No Reported Reaction Additional Psychological History / Comment(s): History of dementia Smoking Status: Former smoker Past Alcohol Use History: None Reported Past Drug Use History: None Reported Medications and Allergies Home Medications Medication Instructions Recorded Confirmed Type Acetaminophen [Tylenol] 500 mg PO Q6H PRN 01/06/20 01/06/20 History Donepezil [Aricept] 10 mg PO HS 01/06/20 01/06/20 History Loratadine [Claritin] 10 mg PO DAILY 01/06/20 01/06/20 History Omeprazole [PriLOSEC] 40 mg PO DAILY 01/06/20 01/06/20 History Tamsulosin HCl [Flomax] 0.4 mg PO DAILY 01/06/20 01/06/20 History Allergies Allergy/AdvReac Type Severity Reaction Status Date / Time No Known Allergies Allergy Verified 01/06/20 19:17 Physical Exam Vitals: Vital Signs Temp Pulse Pulse Resp BP BP Pulse Ox 01/11/20 12:00 97.4 F L 87 25 H 132/78 93 L 01/11/20 11:00 87 22 146/75 01/11/20 10:00 82 23 138/93 94 L 01/11/20 09:00 83 22 146/110 94 L 01/11/20 08:00 98.3 F 83 22 138/79 94 L 01/11/20 07:00 80 20 128/77 92 L 01/11/20 06:00 76 20 135/89 94 L 01/11/20 05:00 78 21 136/73 93 L 01/11/20 04:00 98.4 F 77 22 136/73 93 L 01/11/20 03:12 98.7 F 83 17 159/74 96 01/11/20 01:51 98.0 F 77 17 143/80 93 L 01/10/20 21:15 100.2 F H 01/10/20 19:13 103.4 F H 105 H 17 151/77 97 01/10/20 17:00 104 H 178/98 98 01/10/20 16:45 103 H 152/98 98 01/10/20 16:30 106 H 158/88 98 01/10/20 16:15 99 172/100 98 01/10/20 16:00 104 H 18 156/100 98 01/10/20 15:45 89 154/81 100 01/10/20 15:15 129 H 132/77 100 01/10/20 15:00 88 159/77 99 01/10/20 14:45 140 H 162/98 100 01/10/20 14:30 124 H 165/114 98 01/10/20 14:20 140 H 189/103 97 01/10/20 14:15 86 176/97 97 01/10/20 14:00 97.4 F L 92 191/98 93 L Intake and Output 01/10/20 01/11/20 01/11/20 22:59 06:59 14:59 Intake Total 225 875 Output Total 0 155 180 Balance 0 70 695 Intake: IV 225 375 D5-0.45% NaCl with KCl 225 375 20Meq/l 1,000 ml @ 125 mls/hr IV .Q8H [facility] Rx#: [id number] Intake, IV Titration 500 Amount Sodium Chloride 0.9% 500 500 ml 500 ml @ 999 mls/hr IV .Q31M [facility] Rx#:[id number] Output: Urine 155 180 Stool 0 Other: Voiding Method Indwelling Catheter Indwelling Catheter # Voids 1 # Bowel Movements 1 1 Physical Exam: Revealed a 85-year-old white male very pleasant in no distress. On room air. O2 saturation is 93%. Head: Atraumatic, normocephalic. HEENT:[Neck is supple.] [No neck masses.] [No thyromegaly.] [No JVD.] Chest: [Symmetrical chest expansion, diminished breath sounds at the bases, no rhonchi and no wheezes. Cardiac Exam: [Normal S1 and S2, no S3 gallop, no murmur.] Abdomen: [Soft, minimal tenderness, dressing is clean and dry. Positive bowel sounds. Extremities: [No clubbing, no edema, no cyanosis.] Neurological Exam: Alert oriented 3, minimal confusion noted. Psychiatric: Normal mood, affect, minimal confusion secondary to underlying dementia noted. Skin: No rashes. Results - Laboratory Findings CBC and BMP: 01/11/20 03:36 01/11/20 03:36 PT/INR, D-dimer PT 10.3 sec (9.0-12.0) 01/06/20 15:23 INR 1.0 (<1.2) 01/06/20 15:23 D-Dimer 2.65 mg/L FEU (<0.60) H 01/09/20 07:35 Abnormal lab findings: Abnormal Labs 01/06/20 01/06/20 01/06/20 15:23 15:23 15:23 WBC RBC 4.05 L Hgb 12.9 L Hct 37.9 L MCHC Plt Count 102 L Neutrophils # Lymphocytes # 0.3 L Lymphocytes # (Manual) D-Dimer 1.31 H Chloride BUN Creatinine Glucose POC Glucose (mg/dL) Calcium Alkaline Phosphatase C-Reactive Protein Total Protein Albumin Procalcitonin Urine Protein 1+ H Urine Blood Moderate H Ur Leukocyte Esterase Large H Urine RBC 146 H Urine WBC >182 H Urine WBC Clumps Many H Urine Bacteria Many H Urine Mucus Many H 01/06/20 01/06/20 01/07/20 15:23 15:23 06:13 WBC RBC 3.42 L Hgb 11.0 L Hct 32.4 L MCHC Plt Count 93 L Neutrophils # Lymphocytes # Lymphocytes # (Manual) 0.61 L D-Dimer Chloride BUN 27 H Creatinine Glucose 126 H POC Glucose (mg/dL) Calcium Alkaline Phosphatase C-Reactive Protein 391.5 H Total Protein Albumin 3.2 L Procalcitonin 0.65 H Urine Protein Urine Blood Ur Leukocyte Esterase Urine RBC Urine WBC Urine WBC Clumps Urine Bacteria Urine Mucus 01/07/20 01/09/20 01/09/20 06:13 07:35 07:35 WBC RBC 3.52 L Hgb 11.2 L Hct 33.6 L MCHC Plt Count 143 L D Neutrophils # Lymphocytes # Lymphocytes # (Manual) 0.50 L D-Dimer 2.65 H Chloride 109 H BUN 23 H Creatinine Glucose POC Glucose (mg/dL) Calcium 8.0 L Alkaline Phosphatase C-Reactive Protein Total Protein Albumin Procalcitonin Urine Protein Urine Blood Ur Leukocyte Esterase Urine RBC Urine WBC Urine WBC Clumps Urine Bacteria Urine Mucus 01/09/20 01/10/20 01/10/20 07:35 07:03 07:03 WBC RBC 3.75 L Hgb 11.5 L Hct 35.6 L MCHC Plt Count Neutrophils # Lymphocytes # 0.6 L Lymphocytes # (Manual) D-Dimer Chloride 111 H 109 H BUN Creatinine 0.64 L Glucose 73 L POC Glucose (mg/dL) Calcium 8.0 L 8.2 L Alkaline Phosphatase C-Reactive Protein 254.7 H Total Protein 5.6 L Albumin 2.7 L Procalcitonin Urine Protein Urine Blood Ur Leukocyte Esterase Urine RBC Urine WBC Urine WBC Clumps Urine Bacteria Urine Mucus 01/10/20 01/10/20 01/11/20 15:28 15:28 03:36 WBC 14.0 H RBC 3.90 L Hgb 11.5 L Hct 37.4 L MCHC 30.8 L Plt Count Neutrophils # 8.2 H 12.6 H Lymphocytes # 0.5 L 0.5 L Lymphocytes # (Manual) D-Dimer Chloride BUN Creatinine 0.60 L Glucose POC Glucose (mg/dL) Calcium Alkaline Phosphatase 130 H C-Reactive Protein Total Protein Albumin 3.2 L Procalcitonin Urine Protein Urine Blood Ur Leukocyte Esterase Urine RBC Urine WBC Urine WBC Clumps Urine Bacteria Urine Mucus 01/11/20 01/11/20 03:36 04:06 WBC RBC Hgb Hct MCHC Plt Count Neutrophils # Lymphocytes # Lymphocytes # (Manual) D-Dimer Chloride BUN 21 H Creatinine Glucose 123 H POC Glucose (mg/dL) 121 H Calcium 8.3 L Alkaline Phosphatase C-Reactive Protein Total Protein Albumin Procalcitonin Urine Protein Urine Blood Ur Leukocyte Esterase Urine RBC Urine WBC Urine WBC Clumps Urine Bacteria Urine Mucus - Diagnostic Findings Chest x-ray: image reviewed (As noted in HPI.) Assessment and Plan Assessment: Impression: Postoperative lower GI bleeding, secondary to diverticulosis, no active bleeding during my evaluation. Status post low anterior resection for presumptive cecal mass, however findings intraoperatively were negative except for diverticulosis. Severe diverticulosis and sigmoid colon inflammatory changes/diverticulitis. Coated 19 negative. History of dementia Acute urinary tract infection secondary to Klebsiella pneumoniae History of nephrolithiasis Postoperative paroxysmal atrial fibrillation, resolved. Recommendation: Continue present supportive care measures. During my evaluation, the patient was noted to be stable, no evidence of any active GI bleeding at the time, patient will likely be transferred back to regular medical floor today and considering his episodes of atrial fibrillation post surgery, may transfer the patient to a monitor bed. Or remote telemetry. Incentive spirometry. Continue to monitor daily hemoglobin and hematocrit. And transfuse if necessary. Presently the patient does not meet criteria for blood transfusion. We will continue to follow. Time with Patient: Greater than 30
[2020-01-11 13:54] LABS: Amorphous Sediment,Urine Rare /hpf; Appearance,Urine Cloudy (Clear); Bilirubin,Urine Negative (Negative); Blood,Urine Small (Negative); Color,Urine Yellow; Glucose,Urine (UA) Negative (Negative); Ketones,Urine 1+ (Negative); Leukocyte Esterase,Urine Moderate (Negative); Mucus,Urine Rare /hpf; Nitrite,Urine Negative (Negative); Protein,Urine Trace (Negative); RBC,Urine 7 /hpf (0-5); Specific Gravity,Urine 1.033 (1.001-1.035); Urobilinogen,Urine <2.0 mg/dL (<2.0); WBC,Urine 22 /hpf (0-5)
--- NOTE | 2020-01-11 16:00 | PN ---
PROGRESS NOTE DATE OF SERVICE: 01/11/2020 This is an 85-year-old gentleman who was admitted with acute UTI with Klebsiella with sepsis, also had features of possible acute severe diverticulosis. The patient had inflammatory changes. Patient underwent low anterior resection by Dr. Tellez yesterday but subsequently patient had episode of gastrointestinal bleed and was monitored in ICU. The patient also had tachycardia with some occasional irregularity. The patient was also seen by Cardiology for possible postoperative atrial fibrillation. The patient is being closely monitored. The patient remains to be confused. Dr. Barrientos is following the patient from ICU [id number]. PAST MEDICAL HISTORY: Reviewed. REVIEW OF SYSTEMS: Could not be taken. CURRENT MEDICATIONS: 1. Tylenol p.r.n. 2. Inola 5 mg. 3. Xanax. 4. Entereg. 5. Zithromax. 6. Aricept. 7. Lovenox. 8. Folic acid. 9. Dilaudid. 10.Ativan. 11.Lopressor. 12.Multivitamins. 13.Narcan. 14.Zofran. 15.Protonix. 16.Zosyn. 17.Risperdal. 18.Flomax. 19.Vitamin B1. PHYSICAL EXAM: Patient is conscious, confused. Pulse 87. Blood pressure 130/70, respirations 25, temperature 97.4, pulse ox 98% on room air. HEENT: Conjunctivae normal. Oral mucosa moist. NECK: No jugular venous distention. No lymph node enlargement. CARDIOVASCULAR: S1, S2. RESPIRATORY: Diminished breath sounds at the bases. A few scattered rhonchi and crackles. ABDOMEN: Soft, status post surgery. LEGS: No edema, no swelling. NERVOUS SYSTEM: Diffusely weak. LABS: WBC 14, hemoglobin 11.5, sodium 139. UA noted. ASSESSMENT: 1. Acute severe diverticulosis with possible sigmoid stricture with inflammatory changes, status post low anterior resection, rule out obstructing tumor. 2. Acute urinary tract infection with Klebsiella with sepsis present on admission, not related to Boland catheter. 3. COVID-19 ruled out. 4. Change in mental status, acute metabolic encephalopathy. 5. Possible lower gastrointestinal bleeding. 6. Postoperative paroxysmal atrial fibrillation. 7. Severe dementia. 8. Severe gait dysfunction. 9. Anemia. 10.Macrocytosis with possible nutritional anemia. 11.Elevated D-dimer. 12.No evidence of pneumonia in the chest x-ray. 13.History of gastroesophageal reflux disease. 14.History of benign prostatic hypertrophy. 15.History of kidney stones. 16.History of hernia repair. 17.Remote history of nicotine dependence. 18.FULL CODE. RECOMMENDATIONS AND DISCUSSION: Continue current management, continue symptomatic treatment. Otherwise, at this time the GI bleed appears to be subsided. We will continue to monitor hemoglobin as it remains stable. Patient is on broad-spectrum IV antibiotics. White count is slightly elevated. Patient also has a postoperative paroxysmal atrial fibrillation. We will continue to monitor along with Cardiology. A 2D echo has been ordered. Further recommendations to follow. Prognosis guarded. Discussed with staff. MMODL / IJN: [id number] /
[2020-01-11] MEDS: AZITHROMYCIN 500 MG TAB PO SCH (17:08)
[2020-01-11] MEDS: ENOXAPARIN 40 MG/0.4 ML SYRINGE SQ SCH (17:08)
[2020-01-11] MEDS: DONEPEZIL 10 MG TAB PO SCH (21:23)
[2020-01-11] MEDS: risperiDONE 0.25 MG TAB PO SCH (21:23)
[2020-01-11] MEDS: METOPROLOL TARTRATE 25 MG TAB PO SCH (21:23)
--- NOTE | 2020-01-11 22:07 | PN ---
PROGRESS NOTE DATE OF SERVICE: 01/11/2020 REASON FOR FOLLOWUP: UTI and diverticulitis. INTERVAL HISTORY: The patient is currently afebrile, has been breathing comfortably on room air. Denies any chest pain or cough. Abdominal discomfort but no worsening. No nausea, no vomiting. No bowel movement. PHYSICAL EXAMINATION: Blood pressure 163/79 with a pulse of 92, temperature 98.2. He is 95% on room air. General description is an elderly male lying in bed in no distress. Respiratory system: Unlabored breathing, decreased breath sounds in the base. No wheeze. HEART S1, S2. Regular rate and rhythm. ABDOMEN: Soft, mildly tender. No guarding. No rigidity. LABS: Hemoglobin 11.5, white count 14, BUN of 21, creatinine 0.79. Urine with Klebsiella. DIAGNOSTIC IMPRESSION AND PLAN: Patient with fever, source is likely Klebsiella urinary tract infection with a component of diverticulitis in this patient, status post low anterior resection with no evidence of any perforation. The patient is covered with Zosyn to continue and monitor clinical course closely. MMODL / IJN: [id number] /
[2020-01-11] MEDS: ALBUTEROL HFA INHALER INHALATION PRN (22:21)
[2020-01-12] MEDS: PIPERACILLIN-TAZOBACTAM 3.375 GM in SODIUM CHLORIDE 0.9% 100 ML IVPB SCH ×3 (00:49→15:28)
[2020-01-12] MEDS: SODIUM CHLORIDE 0.9% 1,000 ML IV SCH ×2 (06:22→20:33)
[2020-01-12 07:02] LABS: Basophils % (A) 0 %; Eosinophils # (A) 0.1 k/uL (0-0.7); Eosinophils % (A) 1 %; HGB 10.6 gm/dL (13.0-17.5); Lymphocytes # (A) 0.6 k/uL (1.0-4.8); Lymphocytes % (A) 5 %; MCH 31.1 pg (25.0-35.0); MCHC 33.1 g/dL (31.0-37.0); MCV 94.2 fL (80.0-100.0); Mean Platelet Volume 7.4; Monocytes # (A) 0.4 k/uL (0-1.0); Monocytes % (A) 3 %; Neutrophils # (A) 11.4 k/uL (1.3-7.7); Neutrophils % (A) 90 %; Platelet Count 265 k/uL (150-450); WBC 12.7 k/uL (3.8-10.6)
[2020-01-12 07:10] LABS: African American GFR (CKD) >90 (>60 ml/min/1.73 sqM); Anion Gap 5 mmol/L; Blood Urea Nitrogen 20 mg/dL (9-20); Calcium 7.8 mg/dL (8.4-10.2); Carbon Dioxide 23 mmol/L (22-30); Chloride 113 mmol/L (98-107); Glucose 150 mg/dL (74-99); Non-African American GFR(CKD) 89 (>60 ml/min/1.73 sqM); Potassium 3.8 mmol/L (3.5-5.1); Sodium 141 mmol/L (137-145)
[2020-01-12] MEDS: ALVIMOPAN 12 MG CAPSULE PO SCH ×2 (07:54→20:33)
[2020-01-12] MEDS: ACETAMINOPHEN TAB 325 MG TAB PO PRN (08:11)
[2020-01-12] MEDS: TAMSULOSIN 0.4 MG CAP.ER.24H PO SCH (08:12)
[2020-01-12] MEDS: METOPROLOL TARTRATE 25 MG TAB PO SCH ×2 (08:12→20:40)
[2020-01-12] MEDS: D5-0.45% NACL WITH KCL 20MEQ/L 1,000 ML IV SCH ×3 (08:12→20:40)
[2020-01-12] MEDS: PANTOPRAZOLE 40 MG TABLET PO SCH (08:12)
--- NOTE | 2020-01-12 11:01 | P.PN ---
Subjective Progress Note Date: 01/12/20 Principal diagnosis: Diverticulitis Patient comfortable without complaints. No further rectal bleeding. White blood cell count 12.7. He is afebrile. Objective - Vital Signs Vital signs: Vital Signs Temp 101.0 F H 01/12/20 08:04 Pulse 82 01/12/20 08:04 Resp 22 01/12/20 08:04 BP 124/66 01/12/20 08:04 Pulse Ox 93 L 01/12/20 08:04 Intake & Output 01/11/20 01/12/20 01/12/20 18:59 06:59 18:59 Intake Total 875 Output Total 180 400 Balance 695 -400 Intake: IV 375 D5-0.45% NaCl with KCl 375 20Meq/l 1,000 ml @ 125 mls/hr IV .Q8H [facility] Rx#: [id number] Intake, IV Titration 500 Amount Sodium Chloride 0.9% 500 500 ml 500 ml @ 999 mls/hr IV .Q31M [facility] Rx#:[id number] Output: Urine 180 400 Other: Voiding Method Indwelling Catheter Indwelling Catheter Indwelling Catheter # Bowel Movements 1 - Exam Abdomen: Soft, minimal distention, mild tenderness, dressing clean and dry - Labs CBC & Chem 7: 01/12/20 06:05 01/12/20 06:05 Labs: Abnormal Lab Results - Last 24 Hours (Table) 01/11/20 01/12/20 01/12/20 Range/Units 12:30 06:05 06:05 WBC 12.7 H (3.8-10.6) k/uL RBC 3.40 L (4.30-5.90) m/uL Hgb 10.6 L (13.0-17.5) gm/dL Hct 32.0 L (39.0-53.0) % Neutrophils # 11.4 H (1.3-7.7) k/uL Lymphocytes # 0.6 L (1.0-4.8) k/uL Chloride 113 H (98-107) mmol/L Creatinine 0.65 L (0.66-1.25) mg/dL Glucose 150 H (74-99) mg/dL Calcium 7.8 L (8.4-10.2) mg/dL Urine Protein Trace H (Negative) Urine Ketones 1+ H (Negative) Urine Blood Small H (Negative) Ur Leukocyte Esterase Moderate H (Negative) Urine RBC 7 H (0-5) /hpf Urine WBC 22 H (0-5) /hpf Amorphous Sediment Rare H (None) /hpf Urine Mucus Rare H (None) /hpf Microbiology - Last 24 Hours (Table) 01/11/20 12:30 Urine Culture - Preliminary Urine,Voided 01/06/20 15:23 Blood Culture - Preliminary Blood No Growth after 120 hours Assessment and Plan (1) Diverticulitis Narrative/Plan: Patient seems to be doing better. Continue liquid diet only. Gradually increase activity. Repeat labs tomorrow. Await final path. Current Visit: Yes Status: Acute Code(s): K57.92 - DVTRCLI OF INTEST, PART UNSP, W/O PERF OR ABSCESS W/O BLEED SNOMED Code(s): 554449237
[2020-01-12] MEDS: FOLIC ACID 1 MG TAB PO SCH (12:56)
[2020-01-12] MEDS: MULTIVITAMINS, THERA 1 EACH TAB PO SCH (12:56)
[2020-01-12] MEDS: THIAMINE 100 MG TAB PO SCH (12:56)
--- NOTE | 2020-01-12 14:06 | XR ---
EXAMINATION TYPE: XR chest 1V portable DATE OF EXAM: 01/12/2020 COMPARISON: 01/10/2020 HISTORY: Cough TECHNIQUE: FINDINGS: There is some coarsening of pulmonary interstitial markings. There is no heart failure. Hea rt size is normal. There is no definite pleural effusion. There are chest leads. IMPRESSION: Slight increased lung markings without consolidation or heart failure.
[2020-01-12] MEDS ORDERED: FUROSEMIDE 10 MG/ML 4 ML VIAL IV STA (15:15)
[2020-01-12] MEDS: ENOXAPARIN 40 MG/0.4 ML SYRINGE SQ SCH (15:28)
--- NOTE | 2020-01-12 17:16 | PN ---
PROGRESS NOTE DATE OF SERVICE: 01/12/2020 This is an 84-year-old gentleman initially admitted with UTI with Klebsiella pneumonia also had features of acute diverticulitis and patient also had sigmoid stricture and the patient underwent low anterior resection. Patient being closely monitored. Patient continues to be confused. The patient also complained of some cough at this time. The most recent chest x-ray which was reviewed personally by me showed some increased bronchovascular markings at this time. No chest pain. No palpitations. No fever. Currently the patient is on 75 mL per IV fluids. The patient is also on clear liquid diet. PAST MEDICAL HISTORY: Reviewed. REVIEW OF SYSTEMS: Review of systems could not be taken because of the patient's confusion. CURRENT MEDICATIONS: Reviewed and include: 1. Tylenol p.r.n. 2. [place] 5 mg q.6h p.r.n. 3. Ventolin. 4. Xanax 0.5 t.i.d. 5. Entereg 12 mg p.o. b.i.d. 6. Aricept 10 mg p.o. q.h.s. 7. Lovenox 40 mg subcu b.i.d. 8. Folic acid 1 mg p.o. daily. 9. Dilaudid 1 mg q.3 p.r.n. 10.Ativan 0.5 mg q.4 p.r.n. 11.Lopressor 25 mg p.o. b.i.d. 12.Multivitamins one p.o. daily. 13.Narcan 0.2 q.2 p.r.n. 14.Zofran 4 mg IV q.8 hours. 15.Protonix 40 mg p.o. 16.Zosyn 3.375 IV q.8. 17.Risperdal 0.125 mg q.h.s. 18.Flomax 0.4. 19.Vitamin B1 100 mg p.o. daily. PHYSICAL EXAM: The pulse is 82. Blood pressure 124/66, respiration 22, temperature 101 degrees, pulse ox 98% on room air. HEENT: Conjunctivae normal. NECK: No JVD. CARDIOVASCULAR: S1, S2 muffled. RESPIRATORY SYSTEM: Breath sounds diminished at the bases. A few scattered rhonchi. ABDOMEN: Soft, status post surgery. LEGS are no edema. No swelling. NERVOUS SYSTEM: No focal deficits. LABS: WBC 12.7, hemoglobin 10.6, sodium 140, potassium 3.8. UA shows some minimal UTI. ASSESSMENT: 1. Acute severe diverticulosis with possible sigmoid stricture with inflammatory changes, status post low anterior resection, rule out also malignancy. 2. Acute urinary tract infection with Klebsiella with sepsis present on admission, not related to Boland catheter. 3. Continued fever. 4. Covid 19 test negative. 5. Change in mental status, acute metabolic encephalopathy. 6. Possible lower gastrointestinal bleeding. 7. Postoperative paroxysmal atrial fibrillation. 8. Severe dementia. 9. Severe gait dysfunction. 10.Anemia. 11.Macrocytosis with possibly nutritional anemia. 12.Elevated D-dimer. 13.No evidence of pneumonia on the chest x-ray. 14.Gastroesophageal reflux disease. 15.History of benign prostatic hypertrophy. 16.History of kidney stones. 17.History of hernia repair. 18.Remote history of nicotine dependence. 19.FULL CODE. RECOMMENDATIONS AND DISCUSSION: This 85-year-old gentleman who presented with multiple complex medical issues, at this time, I recommend to continue current medications, management and symptomatic treatment. Otherwise, at this time, I would recommend repeat labs and follow the cultures. We will also recommend evaluation by Infectious Disease and continue to monitor COVID-19 is possible given the testing is negative. We will continue to monitor and I will add bronchodilators to the current regimen. We will cut down the IV fluids and order a dose of Lasix as well. MMODL / IJN: [id number] /
[2020-01-12] MEDS: risperiDONE 0.25 MG TAB PO SCH (20:40)
[2020-01-12] MEDS: DONEPEZIL 10 MG TAB PO SCH (20:40)
--- NOTE | 2020-01-12 23:34 | PN ---
PROGRESS NOTE DATE OF SERVICE: 01/12/2020. REASON FOR FOLLOWUP: UTI and diverticulitis. INTERVAL HISTORY: The patient did spike a fever this morning of 101 degrees Fahrenheit. The patient is afebrile since then. He was slightly lethargic and was unable to provide any history. No vomiting or any diarrhea reported. The patient is currently on room air. PHYSICAL EXAMINATION: Blood pressure 99/57 with a pulse of 70, temperature 98.2. He is 93% on room air. General description is an elderly male lying in bed in no distress. RESPIRATORY SYSTEM: Unlabored breathing, decreased breath sounds at bases. No wheeze, HEART: S1, S2. Regular rate and rhythm. ABDOMEN: Soft, no tenderness. EXTREMITIES: No edema of the feet. LABS: White count is down to 12,000. Creatinine 0.65. DIAGNOSTIC IMPRESSION AND PLAN: Patient with a fever which is likely urinary tract infection and a question of diverticulitis in this patient with a new fever, WBC is slightly increased , chest x-ray unremarkable without evidence of heart failure. Blood cultures will be repeated. Aspiration precautions and continue with Zosyn. Monitor clinical course closely. MMODL / IJN: [id number] / MTDD
[2020-01-13] MEDS: PIPERACILLIN-TAZOBACTAM 3.375 GM in SODIUM CHLORIDE 0.9% 100 ML IVPB SCH ×3 (00:42→16:32)
[2020-01-13] MEDS: ACETAMINOPHEN TAB 325 MG TAB PO PRN (00:42)
[2020-01-13] MEDS: PANTOPRAZOLE 40 MG TABLET PO SCH (09:02)
[2020-01-13] MEDS: METOPROLOL TARTRATE 25 MG TAB PO SCH ×3 (09:02→20:45)
[2020-01-13] MEDS: TAMSULOSIN 0.4 MG CAP.ER.24H PO SCH (09:03)
[2020-01-13] MEDS: ALVIMOPAN 12 MG CAPSULE PO SCH ×2 (09:03→20:44)
--- NOTE | 2020-01-13 11:22 | P.PN ---
Subjective This is a pleasantly confused 85-year-old male past medical history significant for dementia, BPH, nephrolithiasis and gastroesophageal reflux disease. We're following secondary to new onset paroxysmal atrial fibrillation with rapid ventricular rates. He is currently maintaining sinus mechanism however telemetry tracings indicate he is having short bursts of atrial fibrillation. He is seen and examined sitting up in the chair in no acute distress. He denies chest pain, shortness of breath, dizziness or palpitations. Blood pressure 127/65 heart rate 71 afebrile maintaining oxygen saturation on room air. Currently maintained on Lopressor 25 mg twice a day. No anticoagulation was initiated secondary to altered mental status, status post bowel resection and increased risk for falls. Echocardiogram has been obtained and will be reviewed. GENERAL: Well-appearing, well-nourished and in no acute distress. NECK: Supple without JVD or thyromegaly. LUNGS: Scattered rhonchi, no wheezes or rales. Respiration equal and unlabored. HEART: Regular rate and rhythm without murmurs, rubs or gallops. S1 and S2 heard. EXTREMITIES: Normal range of motion, no edema. No clubbing or cyanosis. Peripheral pulses intact. ASSESSMENT Paroxysmal atrial fibrillation, new onset. Currently maintaining sinus mechanism with episodes of A. fib noted throughout last night. Acute diverticulosis status post lower anterior resection Urinary tract infection Altered mental status History of dementia PLAN Increase metoprolol to 25 mg 3 times a day. Ongoing telemetry monitoring. No anticoagulation at this time secondary to altered mental status and increased risk for falls. Initiate low dose aspirin. Nurse Practitioner note has been reviewed, I agree with a documented findings and plan of care. Patient was seen and examined. Objective - Vital Signs Vital signs: Vital Signs Temp 99.2 F 01/13/20 07:51 Pulse 71 01/13/20 07:52 Resp 15 01/13/20 07:52 BP 127/65 01/13/20 07:51 Pulse Ox 95 01/13/20 07:51 Intake & Output 01/12/20 01/13/20 01/13/20 18:59 06:59 18:59 Output Total 1250 600 0 Balance -1250 -600 0 Output: Urine 1250 600 Stool 0 Other: Voiding Method Indwelling Catheter Indwelling Catheter Indwelling Catheter - Labs CBC & Chem 7: 01/12/20 06:05 05/03/20 06:05 Labs: Microbiology - Last 24 Hours (Table) 01/11/20 12:30 Urine Culture - Final Urine,Voided 01/06/20 15:23 Blood Culture - Final Blood No Growth after 144 hours
--- NOTE | 2020-01-13 12:45 | P.PN ---
Subjective Progress Note Date: 01/13/20 CHIEF COMPLAINT: Abnormal CT HISTORY OF PRESENT ILLNESS: Patient is status post low anterior resection performed on 01/10/[address] Tellez. Patient examined this morning. He is sitting up in the chair. He is tolerating clear liquid diet. Denies nausea or vomiting. Pain is controlled. Vital signs are stable. PHYSICAL EXAM: VITAL SIGNS: Reviewed. GENERAL: Well-developed in no acute distress. HEENT: No sclera icterus. Extraocular movements grossly intact. Moist buccal mucosa. Head is atraumatic, normocephalic. ABDOMEN: Soft. Nondistended. Nontender. Dressing clean dry and intact. NEUROLOGIC: Awake and alert ASSESSMENT: 1. Colon mass PLAN: Advance diet to full liquids Pain control Incentive spirometer Activity as tolerated. PT OT on consult Cardiology following secondary to new onset A. fib Nurse practitioner note has been reviewed by physician. Signing provider agrees with the documented findings, assessment, and plan of care. Objective - Vital Signs Vital signs: Vital Signs Temp 99.2 F 01/13/20 07:51 Pulse 71 01/13/20 07:52 Resp 15 01/13/20 07:52 BP 127/65 01/13/20 07:51 Pulse Ox 95 01/13/20 07:51 Intake & Output 01/12/20 01/13/20 01/13/20 18:59 06:59 18:59 Output Total 1250 600 0 Balance -1250 -600 0 Output: Urine 1250 600 Stool 0 Other: Voiding Method Indwelling Catheter Indwelling Catheter Indwelling Catheter - Labs CBC & Chem 7: 01/12/20 06:05 01/12/20 06:05 Labs: Microbiology - Last 24 Hours (Table) 01/11/20 12:30 Urine Culture - Final Urine,Voided 01/06/20 15:23 Blood Culture - Final Blood No Growth after 144 hours
[2020-01-13] MEDS: FOLIC ACID 1 MG TAB PO SCH (13:22)
[2020-01-13] MEDS: MULTIVITAMINS, THERA 1 EACH TAB PO SCH (13:22)
[2020-01-13] MEDS: ASPIRIN 81 MG PO SCH (13:22)
[2020-01-13] MEDS: D5-0.45% NACL WITH KCL 20MEQ/L 1,000 ML IV SCH (13:22)
[2020-01-13] MEDS: THIAMINE 100 MG TAB PO SCH (13:22)
[2020-01-13 13:39] VITALS: BMI 21.9
--- NOTE | 2020-01-13 16:05 | PN ---
PROGRESS NOTE DATE OF SERVICE: 01/13/2020 This is an 85-year-old gentleman who was admitted with acute severe diverticulosis with possible sigmoid stricture, underwent surgery. The patient is sitting on the bed. Patient remains confused at this time. There is no evidence of malignancy per surgery, Dr. Tellez. No chest pain, no palpitation. PHYSICAL EXAMINATION: The patient is conscious, confused. Pulse 71, blood pressure 127/64, respiration 16, temperature 99.2, pulse ox 94% on room air. HEENT: Conjunctivae normal. Oral mucosa moist. NECK: No jugular venous distention. No lymph node enlargement. CARDIOVASCULAR SYSTEM: S1, S2, muffled. RESPIRATION: Breath sounds diminished at the bases, scattered rhonchi. ABDOMEN: Soft, status post surgery. LEGS: No edema, no swelling. LABS: WBC is 12.2, hemoglobin 10.7, UA noted. Urine culture showed Klebsiella pneumonia. ASSESSMENT: 1. Acute severe diverticulosis with possible sigmoid stricture with inflammatory changes with diverticulitis and status post low anterior resection, malignancy unlikely per Surgery. 2. Acute urinary tract infection with Klebsiella with sepsis present on admission, not related to Boland catheter. 3. Continued fever, improving. 4. COVID-19 ruled out. 5. Change in mental status, acute metabolic encephalopathy. 6. Possible lower gastrointestinal bleeding. 7. Postoperative paroxysmal atrial fibrillation. 8. Severe dementia. 9. Severe gait dysfunction. 10.Anemia. 11.Macrocytosis with possible nutritional anemia. 12.Elevated D-dimer. 13.No evidence of pneumonia in the chest x-ray. 14.Gastroesophageal reflux disease. 15.History of BPH. 16.History of kidney stones. 17.History of hernia repair. 18.Remote history of nicotine dependence. 19.FULL CODE. RECOMMENDATION: Recommend to continue current management, symptomatic treatment and continue with IV antibiotics. Closely follow with multiple consultants. Otherwise PT, OT evaluation, possible ECF rehab. Guarded prognosis. Further recommendations to follow. MMODL / IJN: [id number] /
[2020-01-13] MEDS: ENOXAPARIN 40 MG/0.4 ML SYRINGE SQ SCH (16:32)
[2020-01-13] MEDS: SODIUM CHLORIDE 0.9% 1,000 ML IV SCH (16:33)
--- NOTE | 2020-01-13 19:02 | PN ---
PROGRESS NOTE DATE OF SERVICE: 01/13/2020 REASON FOR FOLLOWUP: UTI and diverticulitis. INTERVAL HISTORY: The patient is currently afebrile. The patient is breathing comfortably. Slightly lethargic, though. Denies any chest pain or any cough. No vomiting or any diarrhea. PHYSICAL EXAMINATION: Blood pressure is 132/68 with a pulse of 73, temperature 98.9. He is 96% on room air. General description is an elderly male lying in bed in no distress. RESPIRATORY SYSTEM: Unlabored breathing. Clear to auscultation anteriorly. HEART: S1, S2. Regular rate and rhythm. ABDOMEN: Soft. No tenderness. EXTREMITIES: No edema of the feet. LABS: Hemoglobin is 10.3. White count is down to 12.7. BUN of 20, creatinine 0.65. DIAGNOSTIC IMPRESSION AND PLAN: Patient with fever. Source is multifactorial in this patient who did have a component of UTI and diverticulitis, status post low anterior resection. Patient is covered with Zosyn; to continue and monitor his clinical course closely. MMODL / IJN: [id number] /
[2020-01-13] MEDS: risperiDONE 0.25 MG TAB PO SCH (20:44)
[2020-01-13] MEDS: DONEPEZIL 10 MG TAB PO SCH (20:44)
[2020-01-14] MEDS: D5-0.45% NACL WITH KCL 20MEQ/L 1,000 ML IV SCH (05:35)
[2020-01-14] MEDS: PIPERACILLIN-TAZOBACTAM 3.375 GM in SODIUM CHLORIDE 0.9% 100 ML IVPB SCH ×4 (07:39→17:51)
[2020-01-14] MEDS: PANTOPRAZOLE 40 MG TABLET PO SCH (07:39)
[2020-01-14] MEDS: ASPIRIN 81 MG PO SCH (07:39)
[2020-01-14] MEDS: METOPROLOL TARTRATE 25 MG TAB PO SCH ×3 (07:40→21:27)
[2020-01-14] MEDS: ALVIMOPAN 12 MG CAPSULE PO SCH (07:40)
[2020-01-14] MEDS: TAMSULOSIN 0.4 MG CAP.ER.24H PO SCH (07:40)
--- NOTE | 2020-01-14 09:31 | ECHOF ---
Referral Reason:assess LV function MEASUREMENTS -------- HEIGHT: 170.2 cm WEIGHT: 63.5 kg BP: 123/62 RVIDd: 3.1 cm (< 3.3) IVSd: 1.1 cm (0.6 - 1.1) LVIDd: 3.6 cm (3.9 - 5.3) LVPWd: 1.0 cm (0.6 - 1.1) IVSs: 1.7 cm LVIDs: 2.5 cm LVPWs: 1.5 cm LAESV Index (A-L): 26.45 ml/m Ao Diam: 3.5 cm (2.0 - 3.7) AV Cusp: 1.6 cm (1.5 - 2.6) MV EXCURSION: 11.540 mm (> 18.000) MV EF SLOPE: 126 mm/s (70 - 150) EPSS: 0.3 cm MV E Holden: 0.89 m/s MV DecT: 271 ms MV A Holden: 0.83 m/s MV E/A Ratio: 1.08 RAP: 5.00 mmHg RVSP: 47.15 mmHg FINDINGS -------- Sinus rhythm with extra systolic beats. This was a technically adequate study. The left ventricular size is normal. Left ventricular wall thickness is normal. Overall left vent ricular systolic function is normal with, an EF between 55 - 60 %. The diastolic filling pattern is normal for the age of the patient 12.73. The right ventricle is normal in size. Normal LA size by volume 22+/-6 ml/m2. The right atrial size is normal. Interatrial and interventricular septum intact. There is moderate aortic valve sclerosis. There is no evidence of aortic regurgitation. There is no evidence of aortic stenosis. Mild mitral regurgitation is present. Griy-[id number] tricuspid regurgitation present. There is mild to moderate pulmonary hypertension. The right ventricular systolic pressure, as measured by Doppler, is 47.15mmHg. There is no pulmonic regurgitation present. The aortic root size is normal. IVC Not well visulized. There is no pericardial effusion. CONCLUSIONS -------- 1. Sinus rhythm with extra systolic beats. 2. This was a technically adequate study. 3. The left ventricular size is normal. 4. Left ventricular wall thickness is normal. 5. Overall left ventricular systolic function is normal with, an EF between 55 - 60 %. 6. The diastolic filling pattern is normal for the age of the patient 12.73 7. The right ventricle is normal in size. 8. Normal LA size by volume 22+/-6 ml/m2. 9. The right atrial size is normal. 10. Interatrial and interventricular septum intact. 11. There is moderate aortic valve sclerosis. 12. There is no evidence of aortic regurgitation. 13. There is no evidence of aortic stenosis. 14. Mild mitral regurgitation is present. 15. Qocb-da-fgtnkbmw tricuspid regurgitation present. 16. There is mild to moderate pulmonary hypertension. 17. The right ventricular systolic pressure, as measured by Doppler, is 47.15mmHg. 18. There is no pulmonic regurgitation present. 19. The aortic root size is normal. 20. IVC Not well visulized. 21. There is no pericardial effusion. DAIRY CLERK: Angelique Sanchez RDCS
--- NOTE | 2020-01-14 10:30 | P.PN ---
Subjective Progress Note Date: 01/14/20 CHIEF COMPLAINT: Abnormal CT HISTORY OF PRESENT ILLNESS: Patient is status post low anterior resection performed on 01/10/[address] Tellez. Patient examined this morning. He is sitting up in the chair. He is tolerating full liquid diet. Denies nausea or vomiting. Pain is controlled. Vital signs are stable. Low grade temp this morning of 99.9 PHYSICAL EXAM: VITAL SIGNS: Reviewed. GENERAL: Well-developed in no acute distress. HEENT: No sclera icterus. Extraocular movements grossly intact. Moist buccal mucosa. Head is atraumatic, normocephalic. ABDOMEN: Soft. Nondistended. Nontender. Dressing clean dry and intact. NEUROLOGIC: Awake and alert ASSESSMENT: 1. Colon mass PLAN: Continue full liquid diet Pain control Incentive spirometer Activity as tolerated. PT OT on consult Cardiology following secondary to new onset A. fib Discontinue urinary catheter Nurse practitioner note has been reviewed by physician. Signing provider agrees with the documented findings, assessment, and plan of care. Objective - Vital Signs Vital signs: Vital Signs Temp 99.9 F H 01/14/20 07:33 Pulse 75 01/14/20 07:33 Resp 17 01/14/20 07:35 BP 138/78 01/14/20 07:33 Pulse Ox 95 01/14/20 07:33 Intake & Output 01/13/20 01/14/20 01/14/20 18:59 06:59 18:59 Output Total 900 500 Balance -900 -500 Weight 63.503 kg Output: Urine 900 500 Stool 0 0 Other: Voiding Method Indwelling Catheter Indwelling Catheter Indwelling Catheter # Voids 1 # Bowel Movements 1 1 - Labs CBC & Chem 7: 01/12/20 06:05 01/12/20 06:05 Labs: Microbiology - Last 24 Hours (Table) 01/12/20 17:33 Blood Culture - Preliminary Blood No Growth after 24 hours
--- NOTE | 2020-01-14 10:57 | P.PN ---
Subjective This is a pleasantly confused 85-year-old male past medical history significant for dementia, BPH, nephrolithiasis and gastroesophageal reflux disease. We're following secondary to new onset paroxysmal atrial fibrillation with rapid ventricular rates. He is seen and examined sitting up in bed eating breakfast. He is still confused and mumbling incoherently. Telemetry tracings indicate persistent sinus mechanism. He has had no further episodes of afib since yesterday pole classifier. Blood pressure 138/78 heart rate 75 afebrile and maintaining oxygen saturation on room air. Currently maintained on aspirin 81 mg daily and lopressor 25 mg TID. GENERAL: Well-appearing, well-nourished and in no acute distress. NECK: Supple without JVD or thyromegaly. LUNGS: Clear to auscultation bilaterally. No wheezes, rhonchi or rales. Respiration equal and unlabored. HEART: Regular rate and rhythm without murmurs, rubs or gallops. S1 and S2 heard. EXTREMITIES: Normal range of motion, no edema. No clubbing or cyanosis. Peripheral pulses intact. ASSESSMENT Paroxysmal atrial fibrillation, new onset. Currently maintaining sinus mechanism. Not a candidate for back order clerk anti-coagulation. Acute diverticulosis status post lower anterior resection Urinary tract infection Altered mental status History of dementia PLAN Continue current medical regimen. We will continue to follow as needed, please call with further questions or concerns. Follow up with Dr. Schaefer upon discharge. Nurse Practitioner note has been reviewed, I agree with a documented findings and plan of care. Patient was seen and examined. Objective - Vital Signs Vital signs: Vital Signs Temp 99.9 F H 01/14/20 07:33 Pulse 75 01/14/20 07:33 Resp 17 01/14/20 07:33 BP 138/78 01/14/20 07:33 Pulse Ox 95 01/14/20 07:33 Intake & Output 01/13/20 01/14/20 01/14/20 18:59 06:59 18:59 Output Total 900 500 Balance -900 -500 Weight 63.503 kg Output: Urine 900 500 Stool 0 0 Other: Voiding Method Indwelling Catheter Indwelling Catheter # Voids 1 # Bowel Movements 1 1 - Labs CBC & Chem 7: 01/12/20 06:05 01/12/20 06:05 Labs: Microbiology - Last 24 Hours (Table) 01/12/20 17:33 Blood Culture - Preliminary Blood No Growth after 24 hours
[2020-01-14] MEDS: MULTIVITAMINS, THERA 1 EACH TAB PO SCH (13:29)
[2020-01-14] MEDS: THIAMINE 100 MG TAB PO SCH (13:29)
[2020-01-14] MEDS: FOLIC ACID 1 MG TAB PO SCH (13:30)
[2020-01-14] MEDS: SODIUM CHLORIDE 0.9% 1,000 ML IV SCH ×2 (13:30)
[2020-01-14 15:09] VITALS: RESP 18
--- NOTE | 2020-01-14 17:28 | PN ---
PROGRESS NOTE DATE OF SERVICE: 01/14/2020 REASON FOR FOLLOWUP: UTI and diverticulitis. INTERVAL HISTORY: The patient is currently afebrile. The patient is breathing comfortably, denies any chest pain or cough, abdominal pain. PHYSICAL EXAMINATION: Blood pressure 124/70 with a pulse of 74, temperature 97.6. He is 98% on room air. General description is an elderly male, up in the bed in no distress. RESPIRATORY SYSTEM: Unlabored breathing, clear to auscultation anteriorly. HEART: S1, S2. Regular rate and rhythm. ABDOMEN: Soft, no tenderness. LABS: Hemoglobin is 10.8, white count of 12.7, BUN of 20, creatinine 0.65. DIAGNOSTIC IMPRESSION AND PLAN: Patient with Klebsiella urinary tract infection, in addition to the diverticulitis. The patient is currently covered with Zosyn to continue. White count showing a downward trend. Monitor clinical course closely. MMODL / IJN: [id number] /
[2020-01-14] MEDS: ENOXAPARIN 40 MG/0.4 ML SYRINGE SQ SCH (17:51)
[2020-01-14] MEDS: risperiDONE 0.25 MG TAB PO SCH (21:24)
[2020-01-14] MEDS: DONEPEZIL 10 MG TAB PO SCH (21:24)
[2020-01-15] MEDS: PIPERACILLIN-TAZOBACTAM 3.375 GM in SODIUM CHLORIDE 0.9% 100 ML IVPB SCH ×2 (00:34→09:29)
[2020-01-15] MEDS: SODIUM CHLORIDE 0.9% 1,000 ML IV SCH (00:35)
[2020-01-15] MEDS: D5-0.45% NACL WITH KCL 20MEQ/L 1,000 ML IV SCH (02:42)
--- NOTE | 2020-01-15 08:18 | P.PN ---
Subjective Progress Note Date: 01/14/20 Principal diagnosis: This is an 85-year-old male who was recently admitted with acute severe diverticulosis with possible sigmoid stricture and underwent surgery. Surgery following status post resection. Patient was also on IV antibiotics for pneumonia with possible sepsis and acute urinary tract infection. Patient was found to have Klebsiella pneumonia in the urine culture and is currently on Zosyn. Patient continues to be confused although somewhat responding appropriately to questions and commands. Patient was having fevers and is currently afebrile. Multiple medical consultations following. Patient continues to have an indwelling Boland catheter which should be removed and assess for urinary retention. Currently no reports of chest pain, shortness of breath, or palpitations. No reports of nausea or vomiting patient is tolerating diet. Objective - Vital Signs Vital signs: Vital Signs Temp 97.9 F 01/15/20 02:36 Pulse 70 01/15/20 02:36 Resp 18 01/15/20 04:00 BP 137/67 01/15/20 02:36 Pulse Ox 96 01/15/20 02:36 Intake & Output 01/14/20 01/15/20 01/15/20 18:59 06:59 18:59 Output Total 150 Balance -150 Output: Urine 150 Uretheral (Boland) 150 Other: Voiding Method Indwelling Catheter Urinal Diaper - Exam Gen: This is a 85-year-old male sitting up in the chair awake, alert and orien alexa 2. HEENT: Head is atraumatic, normocephalic. Pupils equal, round. Sclerae is anicteric. NECK: Supple. No JVD. No lymphadenopathy. No thyromegaly. LUNGS: Diminished breath sounds at the bases with some scattered rhonchi noted. No intercostal retractions. HEART: S1, S2 are muffled ABDOMEN: Soft. Bowel sounds are present. No masses. No tenderness. Indwelling Boland catheter noted along with abdominal binder EXTREMITIES: No pedal edema. No calf tenderness. NEUROLOGICAL: Patient is awake, alert and oriented x2. Diffusely weak. - Labs CBC & Chem 7: 01/12/20 06:05 01/12/20 06:05 Labs: Microbiology - Last 24 Hours (Table) 01/12/20 17:33 Blood Culture - Preliminary Blood No Growth after 48 hours Assessment and Plan Assessment: Acute severe diverticulosis with possible sigmoid stricture with inflammatory changes with diverticulitis and status post low anterior resection, malignancy unlikely per surgery Acute urinary tract infection with Klebsiella pneumonia finalized on cultures, with sepsis present on admission, not related to Boland catheter Continued fever, improving Covid 19 ruled out Change in mental status, acute metabolic encephalopathy Possible lower gastrointestinal bleeding Postoperative paroxysmal atrial fibrillation Severe gait dysfunction Severe dementia Anemia Macrocytosis with possible nutritional anemia Elevated d-dimer No evidence of pneumonia on the chest x-ray Gastroesophageal reflux disease Full code Plan: Continue with current medications, management, and symptomatic treatment. Multiple medical consultants following. Continues to have an indwelling Boland catheter and discuss with nursing staff about removing and monitoring for retention. Patient has been seen and evaluated by PT/OT therapy and would benefit from rehab although patient's family is refusing and want him to go home and is agreeable to home care. Arrangements are being made. Further recommendations to follow. Possible discharge in 24 hours.
[2020-01-15 08:37] VITALS: BP 132/72; PULSE 74; TEMP 97.5
[2020-01-15] MEDS: TAMSULOSIN 0.4 MG CAP.ER.24H PO SCH (09:29)
[2020-01-15] MEDS: ASPIRIN 81 MG PO SCH (09:29)
[2020-01-15] MEDS: PANTOPRAZOLE 40 MG TABLET PO SCH (09:29)
[2020-01-15] MEDS: METOPROLOL TARTRATE 25 MG TAB PO SCH (09:29)
[2020-01-15] MEDS: FOLIC ACID 1 MG TAB PO SCH (12:17)
[2020-01-15] MEDS: THIAMINE 100 MG TAB PO SCH (12:17)
[2020-01-15] MEDS: MULTIVITAMINS, THERA 1 EACH TAB PO SCH (12:17)
--- NOTE | 2020-01-15 15:02 | P.DS ---
Providers Date of admission: 01/06/20 16:37 Expected date of discharge: 01/15/20 Attending physician: Susan Chisholm Consults: 01/08/20 12:45 Consult Physician Routine Consulting Provider: Monet Haynes Consult Reason/Comments: uti, sepsis Do you want consulting provider notified?: Yes 01/09/20 10:51 Consult Physician Routine Consulting Provider: Amandeep Tellez Consult Reason/Comments: abnormal ct Do you want consulting provider notified?: Yes 01/11/20 02:30 Consult Physician Routine Consulting Provider: Davis Barrientos Consult Reason/Comments: GIB Do you want consulting provider notified?: Already Contacted Primary care physician: Physician Nonstaff Hospital Course: Final diagnosis Acute severe diverticulosis with possible sigmoid stricture with inflammatory changes with diverticulitis and status post low anterior resection, malignancy unlikely per surgery Acute urinary tract infection with Klebsiella pneumonia finalized on cultures, with sepsis present on admission, not related to Boland catheter Continued fever, improving Covid 19 ruled out Change in mental status, acute metabolic encephalopathy Possible lower gastrointestinal bleeding Postoperative paroxysmal atrial fibrillation Severe gait dysfunction Severe dementia Anemia Macrocytosis with possible nutritional anemia Elevated d-dimer No evidence of pneumonia on the chest x-ray Gastroesophageal reflux disease Full code Discharge disposition Patient is being discharged in a stable condition with guarded prognosis to home and will have home care in the outpatient setting. Patient will continue on oral Cipro and Flagyl for the next 10 days. Patient will need to follow-up with surgery in the outpatient setting in 1 week. Total time taken is 35 minutes. History of present illness This is a 85-year-old male who was recently admitted with acute severe diverticulosis with possible sigmoid stricture status post resection and was being closely monitored. Multiple consultations were following. Patient underwent resection with surgery. Patient was also on IV antibiotics for possible pneumonia with possible sepsis and was also found to have an acute urinary tract infection with culture showing Klebsiella pneumonia and was treated with Zosyn. Infectious disease was following. Patient will continue on a ten-day course of oral Cipro and Flagyl in the outpatient setting. Patient will need to follow-up with primary care provider along with surgery in the outpatient setting. Patient was evaluated by physical therapy recommending subacute rehab although family is adamant about patient returning home. Homecare services have been arranged for the outpatient setting. Patient continues to be confused and does have a history of dementia. Son is caring for him at home. Currently no reports of chest pain, shortness of breath, or palpitations. Patient is afebrile. No reports of nausea or vomiting and patient is tolerating diet. On exam vital signs are stable. Temp is 97.5F, pulse is 74, respirations are 18, blood pressure is 132/72, oxygen saturation is 96% on room air. Cardio S1, S2 are present. Respiratory system shows diminished breath sounds at the bases with no wheezing or rhonchi noted. Abdomen is soft, thin, and non-tender. Nervous system shows diffuse weakness. Please refer to medication reconciliation sheet for a list of medications. Patient Condition at Discharge: Good Plan - Discharge Summary Discharge Rx Participant: No New Discharge Prescriptions: New Aspirin 81 mg PO DAILY 30 Days #30 chew Folic Acid 1 mg PO DAILY@1200 30 Days #30 tab Metoprolol Tartrate [Lopressor] 25 mg PO TID 30 Days #90 tab Multivitamins, Thera [Multivitamin (formulary)] 1 each PO DAILY@1200 30 Days #30 tab Thiamine [Vitamin B-1] 100 mg PO DAILY@1200 30 Days #30 tab Ciprofloxacin HCl [Cipro] 500 mg PO BID 10 Days #20 tab metroNIDAZOLE [Flagyl] 500 mg PO TID 10 Days #30 tab Continue Acetaminophen [Tylenol] 500 mg PO Q6H PRN PRN Reason: Pain Or Fever > 100.5 Tamsulosin HCl [Flomax] 0.4 mg PO DAILY Omeprazole [PriLOSEC] 40 mg PO DAILY Loratadine [Claritin] 10 mg PO DAILY Donepezil [Aricept] 10 mg PO HS Discharge Medication List Acetaminophen [Tylenol] 500 mg PO Q6H PRN 01/06/20 [History] Donepezil [Aricept] 10 mg PO HS 01/06/20 [History] Loratadine [Claritin] 10 mg PO DAILY 01/06/20 [History] Omeprazole [PriLOSEC] 40 mg PO DAILY 01/06/20 [History] Tamsulosin HCl [Flomax] 0.4 mg PO DAILY 01/06/20 [History] Aspirin 81 mg PO DAILY 30 Days #30 chew 01/15/20 [Rx] Ciprofloxacin HCl [Cipro] 500 mg PO BID 10 Days #20 tab 01/15/20 [Rx] Folic Acid 1 mg PO DAILY@1200 30 Days #30 tab 05/06/20 [Rx] Metoprolol Tartrate [Lopressor] 25 mg PO TID 30 Days #90 tab 01/15/20 [Rx] Multivitamins, Thera [Multivitamin (formulary)] 1 each PO DAILY@1200 30 Days #30 tab 01/15/20 [Rx] Thiamine [Vitamin B-1] 100 mg PO DAILY@1200 30 Days #30 tab 01/15/20 [Rx] metroNIDAZOLE [Flagyl] 500 mg PO TID 10 Days #30 tab 01/15/20 [Rx] Follow up Appointment(s)/Referral(s): Francine [facility], [NON-STAFF] - Nonstaff,Physician [Primary Care Provider] - 1-2 days Nahed Schaefer MD [STAFF PHYSICIAN] - 01/28/20 2:00 pm Amandeep Tellez MD [STAFF PHYSICIAN] - 01/21/20 3:30 pm Patient Instructions/Handouts: Colectomy (DC) Activity/Diet/Wound Care/Special Instructions: Activity Limited until follow-up Follow-up With primary care provider upon discharge Continue with home care Continue full liquid diet and advance slowly as tolerated Follow-up with surgery in one week Follow-up with cardiology in the outpatient setting in 2 weeks Continue antibiotics for the next 10 days until finished Discharge Disposition: HOME WITH HOME HEALTH SERVICES
--- NOTE | 2020-01-15 15:18 | PN ---
PROGRESS NOTE DATE OF SERVICE: 01/15/2020 REASON FOR FOLLOWUP: Urinary tract infection and diverticulitis. INTERVAL HISTORY: The patient is currently afebrile. He seems to be more awake, alert. Overall feeling better. Denies any chest pain. No chest or any cough. No vomiting, has been tolerating his diet. PHYSICAL EXAMINATION: Blood pressure 130/72 with a pulse of 74, temperature 97.5. He is 96% on room air. General description is an elderly male up in the chair. in no distress. RESPIRATORY SYSTEM: Unlabored breathing, some decreased breath sounds at bases, no wheeze. HEART: S1, S2. Regular rate and rhythm. ABDOMEN: Soft, no tenderness. LABS: No new labs have been obtained today and blood culture has been negative. Repeat urine is negative. DIAGNOSTIC IMPRESSION AND PLAN: Patient with fever, source is likely multifactorial in this patient have a Klebsiella urinary tract infection as well as diverticulitis, status post lower anterior resection. Patient is currently afebrile. PLAN: Finish therapy with oral Cipro and Flagyl for 10 days. Plan of care was discussed with the nurse practitioner for admitting team. MMODL / IJN: [id number] /
== END 2020-01-15 15:20 | disposition home health service (06) | DRG 853 ==
LOC: EC 14:24 → 4SSUR 16:37 → 3SCARD 01-10 15:19 → 4SSUR 01-10 15:52 → 2SICU 01-11 04:12 → 4SSUR 01-11 14:41
PROVIDERS: ADMIT Hospitalist; ATTEND Hospitalist
PROC: 0DBN0ZZ Excision of Sigmoid Colon, Open Approach (ICD-10-PCS; principal; 2020-01-10 09:45)
DX: A41.59 Other Gram-negative sepsis (principal); G93.41 Metabolic encephalopathy; C18.7 Malignant neoplasm of sigmoid colon; K57.32 Diverticulitis of large intestine without perforation or abscess without bleeding; N39.0 Urinary tract infection, site not specified; K92.2 Gastrointestinal hemorrhage, unspecified; B96.1 Klebsiella pneumoniae [K. pneumoniae] as the cause of diseases classified elsewhere; D64.9 Anemia, unspecified; D72.819 Decreased white blood cell count, unspecified; D75.89 Other specified diseases of blood and blood-forming organs; F03.90 Unspecified dementia, unspecified severity, without behavioral disturbance, psychotic disturbance, mood disturbance, and anxiety; I48.0 Paroxysmal atrial fibrillation; Z20.828 Contact with and (suspected) exposure to other viral communicable diseases; K21.9 Gastro-esophageal reflux disease without esophagitis; K44.9 Diaphragmatic hernia without obstruction or gangrene; N32.0 Bladder-neck obstruction; N40.1 Benign prostatic hyperplasia with lower urinary tract symptoms; Z79.82 Long term (current) use of aspirin; Z79.899 Other long term (current) drug therapy; Z87.442 Personal history of urinary calculi; Z87.891 Personal history of nicotine dependence; Z90.49 Acquired absence of other specified parts of digestive tract; Z91.81 History of falling
CPT/HCPCS: 36415; 71045; 71250; 74176; 80048; 80053; 81001; 82728; 83605; 83615; 83735; 83880; 84145; 84443; 84484; 85025; 85379; 85610; 85730; 86140; 86850; 86900; 86901; 87040; 87077; 87086; 87186; 87502; 87635; 88307; 93005; 93306; 94640; 96360; 99285

== ENCOUNTER 2020-01-21 22:31 | Emergency (ER) | payer MEDICARE ==
[2020-01-21 22:41] VITALS: BP 129/73; PULSE 72; RESP 16; TEMP 97.8
--- NOTE | 2020-01-21 22:52 | ED ---
Recheck HPI - General Chief Complaint: Recheck/Abnormal Lab/Rx Stated Complaint: Reopened abdominal stitches Time Seen by Provider: 01/21/20 22:42 Source: patient, RN notes reviewed Mode of arrival: wheelchair Limitations: no limitations - History of Present Illness Initial Comments: 85-year-old male presents emergency Department with son chief complaint of wound dehiscence. Patient has underlying dementia and sent states he became agitated and was pulling at his abdominal incision. 2 albino ruptured out. Patient was seen today by Dr. Tellez who is his surgeon. Patient had bowel resection approximately 11 days ago. Patient is currently on antibiotics for wound infection. He's had no recent fevers or chills. Some offers no other complai nts. Patient offers no other complaints. - Related Data Home Medications Medication Instructions Recorded Confirmed Acetaminophen [Tylenol] 500 mg PO Q6H PRN 01/06/20 01/06/20 Donepezil [Aricept] 10 mg PO HS 01/06/20 01/06/20 Loratadine [Claritin] 10 mg PO DAILY 01/06/20 01/06/20 Omeprazole [PriLOSEC] 40 mg PO DAILY 01/06/20 01/06/20 Tamsulosin HCl [Flomax] 0.4 mg PO DAILY 01/06/20 01/06/20 Previous Rx's Medication Instructions Recorded Aspirin 81 mg PO DAILY 30 Days #30 chew 01/15/20 Ciprofloxacin HCl [Cipro] 500 mg PO BID 10 Days #20 tab 01/15/20 Folic Acid 1 mg PO DAILY@1200 30 Days #30 tab 01/15/20 Metoprolol Tartrate [Lopressor] 25 mg PO TID 30 Days #90 tab 01/15/20 Multivitamins, Thera [Multivitamin 1 each PO DAILY@1200 30 Days #30 01/15/20 (formulary)] tab Thiamine [Vitamin B-1] 100 mg PO DAILY@1200 30 Days #30 01/15/20 tab metroNIDAZOLE [Flagyl] 500 mg PO TID 10 Days #30 tab 01/15/20 Allergies Allergy/AdvReac Type Severity Reaction Status Date / Time No Known Allergies Allergy Verified 01/21/20 22:41 Review of Systems ROS Statement: Those systems with pertinent positive or pertinent negative responses have been documented in the HPI. ROS Other: All systems not noted in ROS Statement are negative. Past Medical History Past Medical History: Dementia, GERD/Reflux, Prostate Disorder Additional Past Medical History / Comment(s): bph, kidney stone History of Any Multi-Drug Resistant Organisms: None Reported Past Surgical History: Hernia Repair Additional Past Surgical History / Comment(s): kidney stone removal, intestinal blockage. Past Anesthesia/Blood Transfusion Reactions: No Reported Reaction Past Psychological History: No Psychological Hx Reported Smoking Status: Former smoker Past Alcohol Use History: None Reported Past Drug Use History: None Reported General Exam Limitations: no limitations General appearance: alert, in no apparent distress Head exam: Present: atraumatic, normocephalic, normal inspection Respiratory exam: Present: normal lung sounds bilaterally. Absent: respiratory distress, wheezes, rales, rhonchi, stridor Cardiovascular Exam: Present: regular rate, normal rhythm, normal heart sounds. Absent: systolic murmur, diastolic murmur, rubs, gallop, clicks GI/Abdominal exam: Present: soft, normal bowel sounds, other (Vertical incision noted with albino in place in the mid this incision there is wound dehiscence and minimal erythema no purulent drainage). Absent: distended, tenderness, guarding, rebound, rigid Neurological exam: Present: alert Skin exam: Present: warm, dry, intact, normal color. Absent: rash Course Vital Signs 01/21/20 22:35 Temperature 97.8 F Pulse Rate 72 Respiratory 16 Rate Blood Pressure 129/73 O2 Sat by Pulse 97 Oximetry Medical Decision Making - Medical Decision Making Patient presented for a wound dehiscence. Area was cleaned, Steri-Strips were applied. Patient will follow-up with Dr. Tellez for close watch and return parameters were discussed. Disposition Clinical Impression: Abdominal wound dehiscence Disposition: HOME SELF-CARE Condition: Stable Instructions (If sedation given, give patient instructions): Wound Dehiscence (ED) Additional Instructions: Please return to the Emergency Department if symptoms worsen or any other con cerns. Is patient prescribed a controlled substance at d/c from ED?: No Referrals: Nonstaff,Physician [Primary Care Provider] - 1-2 days Time of Disposition: 22:52
== END 2020-01-21 23:14 | disposition home or self-care (01) ==
LOC: EC 22:31
DX: T81.30XA Disruption of wound, unspecified, initial encounter (principal); K21.9 Gastro-esophageal reflux disease without esophagitis; N40.0 Benign prostatic hyperplasia without lower urinary tract symptoms; F03.90 Unspecified dementia, unspecified severity, without behavioral disturbance, psychotic disturbance, mood disturbance, and anxiety; Z79.899 Other long term (current) drug therapy; Z98.890 Other specified postprocedural states; Z87.891 Personal history of nicotine dependence
CPT/HCPCS: 99282